=== PATIENT | female | born 1965 | race Caucasian/White ===

== ENCOUNTER 2017-04-01 19:53 | Emergency (ER) | payer OTHER, BC ==
--- NOTE | 2017-04-01 20:43 | ER Document Report ---
ED Neck/Back Problem - General Chief Complaint: Neck Pain < 24hrs old Stated Complaint: LEFT SIDE NECK PAIN Time Seen by Provider: 04/01/17 20:42 Mode of Arrival: Ambulatory Notes: 51 female with complaint of neck pain. Can feel her heartbeat up into the left side of her neck. Also having intermittent chest pain. Symptoms started a few hours ago. No significant shortness of breath. does have a history of hyperlipidemia. Family history of heart disease. Does not smoke. Not on any medications for blood pressure. TRAVEL OUTSIDE OF THE [place] IN LAST 30 DAYS: No - Related Data Allergies/Adverse Reactions: meperidine [From Demerol] Allergy (Verified 04/01/17 20:34) Past Medical History - Social History Smoking Status: Never Smoker Family History: Reviewed & Not Pertinent Patient has suicidal ideation: No Patient has homicidal ideation: No - Past Medical History Cardiac Medical History: Reports: Hx Hypercholesterolemia Renal/ Medical History: Denies: Hx Peritoneal Dialysis GI Medical History: Reports: Hx Gastroesophageal Reflux Disease Past Surgical History: Reports: Hx Hysterectomy - Immunizations Hx Diphtheria, Pertussis, Tetanus Vaccination: Yes Review of Systems - Review of Systems Constitutional: No symptoms reported EENT: No symptoms reported, Other - Throbbing feeling in her neck Cardiovascular: No symptoms reported, Chest pain Respiratory: No symptoms reported Gastrointestinal: No symptoms reported Genitourinary: No symptoms reported Female Genitourinary: No symptoms reported Musculoskeletal: No symptoms reported Skin: No symptoms reported Hematologic/Lymphatic: No symptoms reported Neurological/Psychological: No symptoms reported Physical Exam - Vital signs Vitals: Temp Pulse Resp BP Pulse Ox 98.0 F 67 16 124/87 H 98 04/01/17 20:18 04/01/17 20:18 04/01/17 20:18 04/01/17 20:18 04/01/17 20:18 Interpretation: Normal - General General appearance: Appears well, Alert - HEENT Head: Normocephalic, Atraumatic Eyes: Normal Pupils: PERRL - Respiratory Respiratory status: No respiratory distress Chest status: Nontender Breath sounds: Normal Chest palpation: Normal - Cardiovascular Rhythm: Regular, Irregularly irregular, Other - Frequent PVCs Heart sounds: Normal auscultation Murmur: No Gallop: No: S3 gallop, S4 gallop Notes: Intermittent left-sided carotid bruit which is very faint - Abdominal Inspection: Normal Distension: No distension Bowel sounds: Normal Tenderness: Nontender Organomegaly: No organomegaly - Back Back: Normal, Nontender - Extremities General upper extremity: Normal inspection, Nontender, Normal color, Normal ROM , Normal temperature General lower extremity: Normal inspection, Nontender, Normal color, Normal ROM , Normal temperature, Normal weight bearing. No: Byron's sign - Neurological Neuro grossly intact: Yes Cognition: Normal Orientation: AAOx4 [place] Coma Scale Eye Opening: Spontaneous [place] Coma Scale Verbal: Oriented [place] Coma Scale Motor: Obeys Commands [place] Coma Scale Total: 15 Speech: Normal Motor strength normal: LUE, RUE, LLE, RLE Sensory: Normal - Psychological Associated symptoms: Normal affect, Normal mood - Skin Skin Temperature: Warm Skin Moisture: Dry Skin Color: Normal Course - Re-evaluation Re-evalutation: 04/01/17 21:06 I believe at this time patient has concern for possible anginal equivalent. Will order the standard protocol for cardiac workup. Patient was advised that she needs to be moved over to a higher acuity level than the fast track area at this time. Patient is comfortable with this plan. Will start on aspirin and order basic labs. Charge nurse notified. We will continue to monitor until patient is transition to different higher acuity level area of the emergency department - Vital Signs Vital signs: Temp Pulse Resp BP Pulse Ox 98.0 F 67 16 124/87 H 98 04/01/17 20:18 04/01/17 20:18 04/01/17 20:18 04/01/17 20:18 04/01/17 20:18 Discharge - Discharge Referrals: YANCY HAWKINS JR, MD [Primary Care Provider] - Follow up as needed
[2017-04-01] MEDS ORDERED: ASPIRIN 325 MG TABLET PO ONE (21:03)
--- NOTE | 2017-04-01 21:21 | ER Document Report ---
ED General - General Chief Complaint: Neck Pain < 24hrs old Stated Complaint: LEFT SIDE NECK PAIN Time Seen by Provider: 04/01/17 20:42 Mode of Arrival: Ambulatory Information source: Patient Notes: 51-year-old female presents with complaints of neck spasm. Patient notes that symptoms worsened with movement of her neck and there is a specific position where she feels the spasm worsening. Patient also notes that 3 days ago she had pain down her left arm. Patient denies any chest pain she denies any shortness of breath. Patient does admit that she had a superficial thrombus in her right hand but did not require any intervention TRAVEL OUTSIDE OF THE [place] IN LAST 30 DAYS: No - HPI Onset: This morning Onset/Duration: Sudden Quality of pain: Cramping, Sharp Severity: Mild Pain Level: 1 Associated symptoms: None Exacerbated by: Movement Relieved by: Denies Similar symptoms previously: No Recently seen / treated by doctor: No - Related Data Allergies/Adverse Reactions: meperidine [From Demerol] Allergy (Verified 04/01/17 20:34) Past Medical History - Social History Smoking Status: Never Smoker Cigarette use (# per day): No Chew tobacco use (# tins/day): No Smoking Education Provided: No Family History: Reviewed & Not Pertinent Patient has suicidal ideation: No Patient has homicidal ideation: No - Past Medical History Cardiac Medical History: Reports: Hx Hypercholesterolemia Renal/ Medical History: Denies: Hx Peritoneal Dialysis GI Medical History: Reports: Hx Gastroesophageal Reflux Disease Past Surgical History: Reports: Hx Hysterectomy - Immunizations Hx Diphtheria, Pertussis, Tetanus Vaccination: Yes Review of Systems - Review of Systems Notes: REVIEW OF SYSTEMS: CONSTITUTIONAL : Denies fever, chills, or sweats. Denies recent illness. EENT: Admits neck pain CARDIOVASCULAR: Denies chest pain. Denies palpitations or racing or irregular heart beat. Denies ankle edema. RESPIRATORY: Denies cough, cold, or chest congestion. Denies shortness of breath, difficulty breathing, or wheezing. GASTROINTESTINAL: Denies abdominal pain or distention. Denies nausea, vomiting , or diarrhea. Denies blood in vomitus, stools, or per rectum. Denies black, tarry stools. Denies constipation. GENITOURINARY: Denies difficulty urinating, painful urination, burning, frequency, blood in urine, or discharge. FEMALE GENITOURINARY: Denies vaginal bleeding, heavy or abnormal periods, irregular periods. Denies vaginal discharge or odor. MUSCULOSKELETAL: Denies back or neck pain or stiffness. Denies joint pain or swelling. SKIN: Denies rash, lesions or sores. HEMATOLOGIC : Denies easy bruising or bleeding. LYMPHATIC: Denies swollen, enlarged glands. NEUROLOGICAL: Denies confusion or altered mental status. Denies passing out or loss of consciousness. Denies dizziness or lightheadedness. Denies headache. Denies weakness or paralysis or loss of use of either side. Denies problems with gait or speech. Denies sensory loss, numbness, or tingling. Denies seizures. PSYCHIATRIC: Denies anxiety or stress. Denies depression, suicidal ideation, or homicidal ideation. ALL OTHER SYSTEMS REVIEWED AND NEGATIVE. PHYSICAL EXAMINATION: GENERAL: Well-appearing, well-nourished and in no acute distress. HEAD: Atraumatic, normocephalic. EYES: Pupils equal round and reactive to light, extraocular movements intact, conjunctiva are normal. ENT: Nares patent, oropharynx clear without exudates. Moist mucous membranes. NECK: Normal range of motion, supple without lymphadenopathy tenderness with range of motion of the neck on the left lateral aspect LUNGS: Breath sounds clear to auscultation bilaterally and equal. No wheezes rales or rhonchi. HEART: Regular rate and rhythm without murmurs ABDOMEN: Soft, nontender, nondistended abdomen. No guarding, no rebound. No masses appreciated. Female : deferred Musculoskeletal: Normal range of motion, no pitting or edema. No cyanosis. NEUROLOGICAL: Cranial nerves grossly intact. Normal speech, normal gait. Normal sensory, motor exams PSYCH: Normal mood, normal affect. SKIN: Warm, Dry, normal turgor, no rashes or lesions noted. Dictation was performed using [employer] voice recognition software Physical Exam - Vital signs Vitals: Temp Pulse Resp BP Pulse Ox 98.0 F 67 16 124/87 H 98 04/01/17 20:18 04/01/17 20:18 04/01/17 20:18 04/01/17 20:18 04/01/17 20:18 Course - Re-evaluation Re-evalutation: 04/02/17 00:14 Patient was passed off to me by fast track physician with concerns for ruling out an ACS. Cardiac enzyme was performed no abnormalities noted. Patient's presentation is more musculoskeletal in nature as it hurts with movement. I did perform a bedside ultrasound and noted no blood clot in the IVC and had full compression all throughout. The carotid itself was evaluated and no stenosis was noted. Patient was made aware these are not official studies and that she must follow-up with a rodeo performer nonetheless. Patient states she will do so and is at this time wishing to be discharged home After performing a Medical Screening Examination, I estimate there is LOW risk for RUPTURED ESOPHAGUS, PNEUMOTHORAX, PULMONARY EMBOLISM, ACUTE CORONARY SYNDROME, OR THORACIC AORTIC DISSECTION, thus I consider the discharge disposition reasonable. I have reevaluated this patient multiple times and no significant life threatening changes are noted. The patient and I have discussed the diagnosis and risks, and we agree with discharging home with close follow-up. We also discussed returning to the Emergency Department immediately if new or worsening symptoms occur. We have discussed the symptoms which are most concerning (e.g., bloody sputum, worsening pain or shortness of breath) that necessitate immediate return. - Vital Signs Vital signs: Temp Pulse Resp BP Pulse Ox 98.0 F 67 16 106/64 100 04/01/17 20:18 04/01/17 20:18 04/01/17 23:19 04/01/17 23:19 04/01/17 23:19 - Laboratory Result Diagrams: 04/01/17 21:15 04/01/17 21:15 - Diagnostic Test Radiology reviewed: Image reviewed, Reports reviewed - EKG Interpretation by Me EKG shows normal: Sinus rhythm, [place], Intervals, QRS Complexes Discharge - Discharge Clinical Impression: Neck pain Condition: Stable Disposition: HOME, SELF-CARE Instructions: Neck Injury (Cervical Strain) ([facility]) Prescriptions: Cyclobenzaprine HCl [Flexeril 10 mg Tablet] 10 mg PO TIDP PRN #14 tablet PRN Reason: Referrals: YANCY HAWKINS JR, MD [Primary Care Provider] - Follow up tomorrow CARISA FITZGERALD MD [ACTIVE STAFF] - Follow up tomorrow
[2017-04-01 21:25] LABS: ABSOLUTE BASOPHILS # (AUTO) 0.1 10^3/uL (0.0-0.2); ABSOLUTE EOSINOPHILS # (AUTO) 0.3 10^3/uL (0.0-0.6); ABSOLUTE LYMPHOCYTES (AUTO) 3.1 10^3/uL (0.5-4.7); ABSOLUTE MONOCYTES (AUTO) 0.6 10^3/uL (0.1-1.4); ABSOLUTE NEUT (AUTO) 3.7 10^3/uL (1.7-8.2); BASOPHILS % (AUTO) 1.2 % (0-2); EOSINOPHILS % (AUTO) 3.9 % (0-6); HEMATOCRIT 38.3 % (36.0-47.0); HGB HCT DIFFERENCE 0.7; LYMPHOCYTES % (AUTO) 39.9 % (13-45); MEAN CORPUSCULAR HEMOGLOBIN 29.3 pg (27.0-33.4); MEAN CORPUSCULAR VOLUME 86 fl (80-97); MONOCYTES % (AUTO) 8.2 % (3-13); RED BLOOD COUNT 4.45 10^6/uL (3.72-5.28); RED CELL DISTRIBUTION WIDTH 13.3 % (11.5-14.0); SEGMENTED NEUTROPHILS % (AUTO) 46.8 % (42-78); WHITE BLOOD COUNT 7.8 10^3/uL (4.0-10.5)
[2017-04-01 21:44] LABS: ALANINE AMINOTRANSFERASE 31 U/L (9-52); ALBUMIN 4.4 g/dL (3.5-5.0); ALKALINE PHOSPHATASE 83 U/L (38-126); ANION GAP 13 (5-19); ASPARTATE AMINO TRANSFERASE 26 U/L (14-36); BILIRUBIN,DIRECT 0.4 mg/dL (0.0-0.4); BILIRUBIN,TOTAL 0.5 mg/dL (0.2-1.3); BLOOD UREA NITROGEN 19 mg/dL (7-20); CALCIUM 9.9 mg/dL (8.4-10.2); CARBON DIOXIDE 27 mmol/L (22-30); CHLORIDE 103 mmol/L (98-107); CREATINE KINASE 84 U/L (30-135); CREATININE RESULT 0.92 mg/dL (0.52-1.25); GLUCOSE 93 mg/dL (75-110); SODIUM 142.8 mmol/L (137-145); TOTAL PROTEIN 7.4 g/dL (6.3-8.2)
[2017-04-01 21:55] LABS: CREATINE KINASE MB 0.37 ng/mL (<4.55)
[2017-04-01 21:56] LABS: TROPONIN I < 0.012 ng/mL
[2017-04-01 22:07] LABS: PROTHROMBIN TIME 12.5 SEC (11.4-15.4)
--- NOTE | 2017-04-01 22:31 | RADIOLOGY REPORT (SQ) ---
EXAM DESCRIPTION: CHEST SINGLE VIEW COMPLETED DATE/TIME: 04/01/2017 9:25 pm REASON FOR STUDY: chest pain COMPARISON: None. EXAM PARAMETERS: NUMBER OF VIEWS: One view. TECHNIQUE: Single frontal radiographic view of the chest acquired. RADIATION DOSE: NA LIMITATIONS: None. FINDINGS: LUNGS AND PLEURA: No opacities, masses or pneumothorax. No pleural effusion. MEDIASTINUM AND HILAR STRUCTURES: No masses. Contour normal. HEART AND VASCULAR STRUCTURES: Heart normal in size. Normal vasculature. BONES: No acute findings. HARDWARE: None in the chest. OTHER: No other significant finding. IMPRESSION: NO ACUTE RADIOGRAPHIC FINDING IN THE CHEST. TECHNICAL DOCUMENTATION: JOB ID: [id number]
[2017-04-01 23:22] VITALS: BP 106/64
--- NOTE | 2017-04-02 08:10 | EKG REPORT ---
SEVERITY:- NORMAL ECG - SINUS RHYTHM : Confirmed by: Angel Franks MD 02-Apr-2017 08:09:43
== END 2017-04-01 23:22 | disposition home or self-care (01) ==
LOC: ER 19:53
DX: M54.2 Cervicalgia (principal); R25.2 Cramp and spasm; M79.602 Pain in left arm
CPT/HCPCS: 36415; 71010; 80053; 82550; 82553; 84484; 85025; 85610; 93005; 93010; 99283

== ENCOUNTER → 2017-11-09 | Outpatient (CLI) | payer OTHER, BC ==
--- NOTE | 2017-11-09 12:39 | WOMENS IMAGING REPORT ---
EXAM DESCRIPTION: BILAT SCREENING MAMMO W/CAD COMPLETED DATE/TIME: 11/09/2017 10:26 am REASON FOR STUDY: SCREENING MAMMO Z12.31 ENCNTR SCREEN MAMMOGRAM FOR MALIGNANT NEOPLASM OF FRANCIS COMPARISON: Multiple since 2009 TECHNIQUE: Standard craniocaudal and mediolateral oblique views of each breast recorded using digita l acquisition. LIMITATIONS: None. FINDINGS: No masses, calcifications or architectural distortion. No areas of suspicion. Read with the assistance of CAD. .[facility] - R2 Cenova Version 1.3 .[facility] - R2 Cenova Version 1.3 .[facility] - R2 Cenova Version 2.4 .[facility] - R2 Cenova Version 2.4 .[facility] - R2 Universal Grinder Tool Version 9.2 IMPRESSION: NORMAL MAMMOGRAM. BIRADS 1. BREAST DENSITY: c. The breasts are heterogeneously dense, which may obscure small masses. BIRAD: 1 NEGATIVE RECOMMENDATION: ROUTINE SCREENING Please continue yearly bilateral screening mammography/tomosynthesis October 2018. Please consider bilat eral screening tomosynthesis given heterogeneously dense tissue. COMMENT: The patient has been notified of the results by letter per SA requirements. Additional no tification policies are in place for contacting patient with suspicious or incomplete findings. Quality ID #[id number]: The [employer] recommends an annual screening mammogram for women aged 40 years or over. This facility utilizes a reminder system to ensure that all patients receive reminder letters, and/or direct phone calls for appointments. This includes reminders for routine scr eening mammograms, diagnostic mammograms, or other Breast Imaging Interventions when appropriate. Th is patient will be placed in the appropriate reminder system. The [employer] (ACR) has developed recommendations for screening MRI of the breast s in certain patient populations, to be used in conjunction with mammography. Breast MRI surveillanc e may be appropriate for women with more than 20% lifetime risk of developing breast cancer as deter mined by genetic testing, significant family history of the disease, or history of mantle radiation f or Hodgkins Disease. ACR Practice Guidelines 2008. TECHNICAL DOCUMENTATION: FINDING NUMBER: (1) ASSESSMENT: (1) JOB ID: [id number] [employer]- All Rights Reserved Reading location - IP/workstation name: [email or web address] [id number]
== END ==
LOC: WI 10:00
PROVIDERS: ATTEND Nurse Practitioner Acute Care
DX: Z12.31 Encounter for screening mammogram for malignant neoplasm of breast (principal)
CPT/HCPCS: 77067

== ENCOUNTER → 2018-11-12 | Outpatient (CLI) | payer OTHER, BC ==
--- NOTE | 2018-11-12 10:32 | WOMENS IMAGING REPORT ---
EXAM DESCRIPTION: BILAT SCREENING MAMMO W/CAD COMPLETED DATE/TIME: 11/12/2018 9:23 am REASON FOR STUDY: ROUTINE BILATERAL SCREENING;Z12.31 Z12.31 ENCNTR SCREEN MAMMOGRAM FOR MALIGNANT N EOPLASM OF FRANCIS COMPARISON: Multiple since 2009 EXAM PARAMETERS: Standard craniocaudal and mediolateral oblique views of each breast recorded using digital acquisition. Read with the assistance of CAD. .[facility] - Fusion Dynamic Final Tester Version 9.2 LIMITATIONS: None. FINDINGS: No suspicious masses, suspicious calcifications or architectural distortion. No areas of s uspicion. IMPRESSION: ASSESSMENT: Negative MAMMOGRAM. BIRADS 1 BREAST DENSITY: c. The breasts are heterogeneously dense, which may obscure small masses. BIRAD: 1 NEGATIVE RECOMMENDATION: ROUTINE SCREENING Please continue yearly bilateral screening mammography. Consider bilateral screening tomosynthesis i n October 2019 given heterogeneously dense fibroglandular tissue bilaterally COMMENT: The patient has been notified of the results by letter per MQSA requirements. Additional no tification policies are in place for contacting patient with suspicious or incomplete findings. Quality ID #[id number]: The [employer] recommends an annual screening mammogram for women aged 40 years or over. This facility utilizes a reminder system to ensure that all patients receive reminder letters, and/or direct phone calls for appointments. This includes reminders for routine scr eening mammograms, diagnostic mammograms, or other Breast Imaging Interventions when appropriate. Th is patient will be placed in the appropriate reminder system. TECHNICAL DOCUMENTATION: FINDING NUMBER: (1) ASSESSMENT: (1) JOB ID: [id number] [employer]- All Rights Reserved Reading location - IP/workstation name: [email or web address]
== END ==
LOC: WI 09:09
PROVIDERS: ATTEND Nurse Practitioner Acute Care
DX: Z12.31 Encounter for screening mammogram for malignant neoplasm of breast (principal)
CPT/HCPCS: 77067

== ENCOUNTER → 2020-07-12 | Outpatient (CLI) | payer OTHER, BC ==
--- OUTSIDE RECORDS SUMMARY | 2020-07-12 08:34 | XMS REPORT ---
:1965 [facility] [address] [place] [address] Care Team Providers Name Role Phone EDILMA HAWKINS Primary Care Physician Unavailable JOSE MIGUEL GUTIÉRREZ Attending Clinician Unavailable BRIDGER CURTIS Attending Clinician Unavailable ANDREWS WHEELER Attending Clinician Unavailable ISRAEL WILSON Attending Clinician Unavailable Antonia Attending Clinician Unavailable JOSE MIGUEL GUTIÉRREZ Admitting Clinician Unavailable ANDREWS WHEELER Admitting Clinician Unavailable ISRAEL WILSON Admitting Clinician Unavailable Liam ANDRES Unavailable Marco Unavailable Unavailable Allergies, Adverse Reactions, Alerts Allergy Allergy Status Severity Reaction(s) Onset Inactive Treating C omments Name Type Date Date Clinician Demerol Drug Active Itching 2016-02 allergy -12 00:00:0 0 Medications Ordered Filled Start Stop Current Ordering Indication Dosage Frequency Signature Comments Components Medication Medication Date Date Medication? Clinician (SIG) Name Name acetaminoph 2019-0 Yes 650mg Take 2 Take 2 en 11-17 tablets tablets (TYLENOL) 00:00: (650 mg (650 mg 325 MG 00 total) by total) by tablet mouth mouth every four every (4) hours four (4) as needed. hours as needed. docusate 2020-0 2020- No 100mg Take 1 Take 1 sodium 11-17 capsule capsule (COLACE) 00:00: 23:59 (100 mg (100 mg 100 MG 00 :00 total) by total) by capsule mouth Two mouth Tw o (2) times (2) times a day. a day. senna 2020-0 2020- No 2{tbl} Take 2 Take 2 (SENOKOT) 11-17 tablets by table ts 8.6 mg 00:00: 23:59 mouth by mouth tablet 00 :00 nightly. nightly. oxyCODONE 2019-2019- No 5mg Take 1 Take 1 (ROXICODONE 11-1705 tablet (5 tabl et (5 ) 5 MG 00:00: 00:00 mg total) mg total ) immediate 00 :00 by mouth by mout h release every four every tablet (4) hours four (4) as needed hours as for up to needed 5 days. for up to 5 days. senna 2019-0 No 2{tbl} 2 tablet, (SENOKOT) 11-16 Oral, tablet 2 21:00: Nightly, tablet 00 First dose on Tasha 11/17/19 at 2100, Post-op
Routine docusate 2019- No 100mg 100 mg, sodium 11-16 Oral, 2 (COLACE) 21:00: times a capsule 100 00 day mg (standard) , First dose on Tasha 11/17/19 at 2100, Post-op
Routine sodium 2019- No 75mL/h 75 mL/hr, chloride 11-16 Intravenou (NS) 0.9 % 15:00: s, infusion 00 Continuous , Starting Tasha 11/17/19 at 1500, Post-op
Routine ceFAZolin 2019- No surgical 2g 2 g, (ANCEF) 11-16 prophylaxis Intravenou IVPB 2 g in 15:00: 22:25 s, at 100 50 ml 00 :00 mL/hr, dextrose Every 8 (premix) hours scheduled, First dose on Tasha 11/17/19 at 1500, For 2 doses, Post-op
Routine, Indication s: surgical prophylaxi s MORPhine 2019-2019- No 2mg 2 mg, injection 2 11-16 Intravenou mg 14:40: 14:39 s, Every 4 43 :43 hours PRN, pain,sever e (7-10), Starting Tasha 11/17/19 at 1440, For 14 days, Post-op
If unable to take oral medication s.
Rout ine oxyCODONE 2019-2019- No 5mg 5 mg, (ROXICODONE 11-16 Oral, ) immediate 14:40: 14:39 Every 4 release 43 :43 hours PRN, tablet 5 mg pain,moder ate (4-6), Starting Tasha 11/17/19 at 1440, For 14 days, Post-op
Routine ondansetron No 4mg 4 mg, (ZOFRAN) 11-16 Intravenou injection 4 14:40: 14:39 s, Every 6 mg 43 :43 hours PRN, nausea, vomiting, Starting Tasha 11/17/19 at 1440, For 24 hours, Post-op
Routine acetaminoph No 650mg 650 mg, en 11-16 Oral, (TYLENOL) 14:40: Every 4 tablet 650 42 hours PRN, mg pain,mild (1-3), Starting Tasha 11/17/19 at 1440, Post-op
ADULT MAX: NOT TO EXCEED 4GM ACETAMINOP HEN IN 24HRS
R outine oxyCODONE No 5mg 5 mg, (ROXICODONE 11-16 Oral, Once ) immediate 12:58: 14:32 as needed, release 01 :57 pain,moder tablet 5 mg ate (4-6), pain,sever e (7-10), Starting Tasha 11/17/19 at 1258, For 6 hours, PACU (only)
Administer >/= 30 minutes prior to discharge if pain >/=4.
R outine fentaNYL No 25ug 25 mcg, (PF) 11-16 Intravenou (SUBLIMAZE) 12:57: 14:00 s, Every 5 injection 52 :00 min PRN, 25 mcg other, pain, moderate (4-6); pain, severe (7-10), Starting Tasha 11/17/19 at 1257, For 4 doses, PACU (only)
Maximum dose 100 mcg.
Ro utine lactated No 10mL/h 10 mL/hr, Ringers 11-16 Intravenou infusion 09:00: 14:40 s, 00 :47 Continuous , Starting Tasha 11/17/19 at 0900, Pre-op (day of surgery)<b r>KVO
R outine zolpidem 2019-0 Yes 5mg Take 5 mg Take 5 mg (AMBIEN) 5 8-22 by mouth by yajaira th MG tablet 00:00: nightly as nigh tly 00 needed. as needed. zolpidem 2019-0 Yes 5mg Q1D Take 1 Tab (AMBIEN) 5 8-22 by mouth mg Oral 00:00: at bedtime Tablet 00 as needed for Sleep. zolpidem 2018-0 No 5mg Q1D Take 1 Tab (AMBIEN) 5 2-13 by mouth mg Oral 00:00: at bedtime Tablet 00 as needed for Sleep. levETIRAcet 0 Yes 500mg Q.5D Take 0.5 am (KEPPRA) 2-05 Tabs by 1,000 mg 00:00: mouth Oral Tablet 00 twice a day. dexamethaso 2018-0 No 4mg Take 1 Tab ne 2-05 by mouth (DECADRON) 00:00: as 4 mg Oral 00 directed. Tablet Take 4mg QID x 4 days, then TID x 4 days, then BID x 4 days, then QD x 4 days, then discontinu e. famotidine 0 Yes 20mg Q.5D Take 1 Tab (PEPCID) 20 2-05 by mouth mg Oral 00:00: twice a Tablet 00 day. Take while on steroid therapy. HYDROcodone 2018-0 No 1{tbl} Q6H Take 1 Tab -acetaminop 2-05 by mouth hen (NORCO, 00:00: every 6 LORCET) 00 hours as 5-325 mg needed for Oral Tablet Pain. dexamethaso 2019-0 Yes 4mg Take 1 Tab ne 2-05 by mouth (DECADRON) 00:00: as 4 mg Oral 00 directed. Tablet Take 4mg QID x 4 days, then TID x 4 days, then BID x 4 days, then QD x 4 days, then discontinu e. levETIRAcet 2020- No 500mg Take 500 Take 500 am (KEPPRA) 2-05 06-05 mg by mg by 1000 MG 00:00: 00:00 mouth two mouth t wo tablet 00 :00 (2) times (2) times a day. a day. dexamethaso 2018-0 2019- No 4mg Q.25D 4 mg, ne 2-04 03-03 Oral, (DECADRON) 12:00: 11:59 EVERY 6 tablet 4 mg 00 :00 HOURS, First dose on 07/26/18 at 1200, For 108 doses
G ke with food and a full glass of water to reduce GI upset.&nbs p;
enoxaparin 2018- No 40mg QD 40 mg, (LOVENOX) 07-25 Subcutaneo 40 mg/0.4 16:00: 15:59 us, DAILY mL 00 :00 AT 1600, injection First dose 40 mg on 07/25/18 at 1600, For 30 days
In ject at a 90 degree angle.&nbs p; Do NOT expel air bubble at tip of syringe.&n bsp; Do NOT massage injection site.&nbsp ; Alt ernate between the left and right anterolate ral and left and right posterolat eral abdominal wall.&nbsp ; Doc ument administra tion site.& nbsp;BLACK BOX WARNING: Epidural or spinal hematomas may occur in patients who are anticoagul ated with LMWHs or heparinoid s and are receiving neuraxial anesthesia or undergoing spinal puncture. These hematomas may result in long-term or permanent paralysis. Consider these risks when scheduling patients for spinal procedures .
dexamethaso 2018- No 6mg Q.25D 6 mg, ne 07-25 Oral, (DECADRON) 06:00: 10:44 EVERY 6 tablet 6 mg 00 :59 HOURS, First dose on Thu07/25/18 at 0600, For 113 doses
G ke with food and a full glass of water to reduce GI upset.&nbs p;
hydrALAZINE 2018- No 10mg Q4H 10 mg, (APRESOLINE 07-25 Intravenou ) injection 03:14: 03:13 s, EVERY 4 10 mg 53 :53 HOURS NEEDED, Elevated BP, Starting 07/25/18 at 0314, For 30 days
For PRN use: maintain SBP less than 140 mmHg
ceFAZolin 2018- No 3055 1g Q8H 1 g, in dextrose 07-24 Intravenou (iso-os) 07:20: 10:00 s, at 100 (ANCEF) 1 00 :31 mL/hr, gram/50 mL Administer IVPB over 30 (premix) 1 Minutes, g EVERY 8 HOURS FREE TIMES, First dose on Thu07/24/18 at 0725, For 3 days
UN TIL HEMOVAC REMOVED
Indicatio ns: Perioperat ke Prophylaxi s dexamethaso 2018- No 8mg Q.25D 8 mg, ne 07-23 Oral, (DECADRON) 12:00: 03:12 EVERY 6 tablet 8 mg 00 :44 HOURS, First dose on Thu07/23/18 at 1200, For 30 days
Gi ve with food and a full glass of water to reduce GI upset.&nbs p;
sodium 2018- No 2g 2 g, Oral, chloride 07-23 TWICE A tablet 2 g 11:00: 07:59 DAY WITH 00 :00 MEALS, First dose on Thu07/23/18 at 1100, For 30 days white 2019- No .25[in_ Q4H 0.25 Inch, petrolatum- 07-23 us] Right Eye, mineral oil 09:36: 09:35 EVERY 4 ophthalmic 23 :23 HOURS ointment NEEDED, 0.25 Inch Dryness, Starting Thu07/23/18 at 0936, For 30 days
Us e for artificial tear ointment.< br> polyvinyl 2019- No 1[drp] Q4H 1 Drop, alcohol-pov 07-23 Right Eye, idone 09:36: 09:35 EVERY 4 (CLEAR 13 :13 HOURS EYES) NEEDED, 0.5-0.6 % Dryness, ophthalmic Starting solution 1 Thu07/23/18 Drop at 0936, For 30 days<br&gt ;Same as Artificial Tears.
HYDROcodone 2019- No 1{tbl} Q4H 1 Tab, -acetaminop 07-23 Oral, hen (NORCO, 08:41: 08:40 EVERY 4 LORCET) 36 :36 HOURS 10-325 mg NEEDED, per tablet Severe 1 Tab Pain, Starting Thu07/23/18 at 0841, For 30 days
Fa ll Risk Medication . &nb sp;For pain.&nbsp ; Ped iatrics:&n bsp; Do not exceed 5 doses of acetaminop hen in 24 hours.
HYDROcodone 2018- No 1{tbl} Q4H 1 Tab, -acetaminop 07-23 Oral, hen (NORCO, 08:41: 08:40 EVERY 4 LORCET) 26 :26 HOURS 5-325 mg NEEDED, per tablet Moderate 1 Tab Pain, Starting Thu07/23/18 at 0841, For 30 days<br&gt ;Fall Risk Medication . &nb sp;For pain.&nbsp ; Ped iatrics:&n bsp; Do not exceed 5 doses of acetaminop hen in 24 hours.
morphine 2018- No 2mg Q4H 2 mg (PF) in 0.9 07-23 (0.0317 % NaCl 2 08:41: 14:39 mg/kg), mg/2 mL (1 13 :16 Intravenou mg/mL) s, EVERY 4 injection 2 HOURS mg NEEDED, Unrelieved Pain, analgesia, Starting Thu07/23/18 at 0841, For 24 hours
F all Risk Medication
levETIRAcet 2018- No 1000mg Q.5D 1,000 mg, am (KEPPRA) 07-22 Oral, tablet 22:00: 21:59 TWICE A 1,000 mg 00 :00 DAY, First dose on Thu07/22/18 at 2200, For 30 days
Fa ll Risk Medication
famotidine 2018- No 20mg Q.5D 20 mg, (PEPCID) 07-22 Oral, tablet 20 22:00: 21:59 TWICE A mg 00 :00 DAY, First dose on Thu07/22/18 at 2200, For 30 days sodium 2018- No 3mL Q.[id number] 3 mL, chloride 07-22 [id number] Intravenou 0.9 % flush 22:00: 21:59 3D s, EVERY 8 3 mL 00 :00 HOURS, First dose on Thu07/22/18 at 2200, For 30 days
As pirate lock to ensure patency; flush with 3 ml of NaCl.&nbsp ; If a medication is administer ed, flush before and after administra tion.
senna 2018- No 2{tbl} QD 2 Tab, (SENOKOT) 07-22 Oral, tablet 2 22:00: 21:59 EVERY Tab 00 :00 EVENING, First dose on Thu07/22/18 at 2200, For 30 days
1 tablet = 8.6 mg Sennosides is equivalent to 187 mg of Senokot.<b r> docusate 2018- No 100mg Q.5D 100 mg, sodium 07-22 Oral, (COLACE) 22:00: 21:59 TWICE A capsule 100 00 :00 DAY, First mg dose on Thu07/22/18 at 2200, For 30 days
HO LD IF > 1 BM DAILY
mannitol 20 2018- No 12.5g Q.25D 12.6 g % 12.6 g in 07-22 (0.2 g/kg, empty 20:45: 19:42 rounded container 00 :42 from 12.5 (BOTTLE) g), IVPB Intravenou s, at 252 mL/hr, Administer over 15 Minutes, EVERY 6 HOURS, First dose on Thu07/22/18 at 2044, For 30 days
Fa ll Risk Medication . Infuse through 1.2 micron in-line filter.
ceFAZolin 2018- No 3055 2g Q8H 2 g, in dextrose 07-22 Intravenou (iso-os) 20:00: 12:24 s, at 100 (ANCEF) 2 00 :00 mL/hr, gram/50 mL Administer IVPB over 30 (premix) 2 Minutes, g EVERY 8 HOURS FREE TIMES, First dose on Thu07/22/18 at 2000, For 3 doses
I ndications : Perioperat ke Prophylaxi s electrolyte 2019- No 75mL/h 75 mL/hr, -R (pH 7.4) 07-22 Intravenou (NORMOSOL-R 19:40: 07:56 s, at 75 PH 7.4) 00 :23 mL/hr, solution CONTINUOUS , Starting Thu07/22/18 at 1940, For 24 hours insulin 2018- No Subcutaneo lispro 07-22 us, FOUR sensitivity 18:20: 17:59 TIMES A factor 00 :00 DAY WITH (humaLOG) MEALS & 100 BEDTIME, units/mL First dose injection on Thu07/22/18 at 1820, For 30 days
Do cument administra tion site.
T arget Glucose Value (mg/dL): 120
Ins ulin Sensitivit y Factor: 30 dextrose 50 2019- No 50mL Q1D 25 g (50 % in water 07-22 mL), (D50W) 18:17: 18:16 Intravenou injection 42 :42 s, 25 g NEEDED, Hypoglycem ia, Blood glucose 54 mg/dL or less--for unresponsi ve, altered mental status, seizures, or NPO status, Starting Thu07/22/18 at 1817, For 30 days dextrose 50 2018- No 25mL Q1D 12.5 g (25 % in water 07-22 mL), (D50W) 18:17: 18:16 Intravenou injection 42 :42 s, 12.5 g NEEDED, Hypoglycem ia, Blood glucose 55-69 mg/dL--for unresponsi ve, altered mental status, seizures, or NPO status, Starting Thu07/22/18 at 1817, For 30 days dexamethaso 2018- No 8mg Q.25D 8 mg ne 07-22 (0.127 (DECADRON) 18:00: 07:56 mg/kg), 4 mg/mL 00 :23 Intravenou injection 8 s, EVERY 6 mg HOURS, First dose on Thu07/22/18 at 1800, For 30 days<br&gt ;Use for Decadron. 5 mL Vials contain multiple doses.
levETIRAcet 2019- No 1000mg Q12H 1,000 mg, am in NaCl 07-22 Intravenou (KEPPRA) 14:50: 18:20 s, 1,000 00 :14 Administer mg/100 mL over 15 IVPB Minutes, (premix) EVERY 12 1,000 mg HOURS FREE TIMES, First dose on Tasha 07/22/18 at 1450, For 30 days
Fa ll Risk Medication
potassium 2019- No 100mL/h 100 mL/hr, chloride in 07-22 Intravenou 0.9%NaCl 20 14:50: 19:36 s, at 100 mEq/L 00 :49 mL/hr, infusion CONTINUOUS (premix) , Starting Tasha 07/22/18 at 1450, For 30 days
Do NOT exceed 20 mEq of potassium chloride per hour.
ondansetron 2018- No 4mg Q6H 4 mg (ZOFRAN) 07-22 (0.0634 injection 4 14:48: 14:47 mg/kg), mg 53 :53 Intravenou s, EVERY 6 HOURS NEEDED, Nausea/Vom iting, Starting Tasha 07/22/18 at 1448, For 30 days
Do ses 4 mg or less can be administer ed IV push over 3-5 minutes.&n bsp;&n bsp;Doses over 4 mg should be diluted and infused over 15 minutes.&n bsp; &nbs p;
acetaminoph 2018- No 650mg Q4H 650 mg, en 07-22 Oral, (TYLENOL) 14:48: 14:47 EVERY 4 tablet 650 52 :52 HOURS mg NEEDED, Fever, Mild Pain, Headache, Temperatur e greater than 38 C, Starting Tasha 07/22/18 at 1448, For 30 days
Pe diatrics:& nbsp;&nbsp ;Do not exceed 5 doses of acetaminop hen in 24 hours.
HYDROmorpho 2019- No .5mg 0.5 mg ne 07-22 (0.33965 (DILAUDID) 10:29: 14:35 mg/kg), 1 mg/mL 26 :12 Intravenou injection s, ANES 0.5 mg EVERY 5 MINUTES NEEDED, Moderate Pain, PostOp pain, if ordered oral meds are not tolerated, Starting Tasha 07/22/18 at 1029, For 12 hours, PACU
PA CU ONLY. Maximum cumulative dose 2 mg (Check all prior administra tions) Fall Risk Medication .
dexamethaso 2018- No 8mg 8 mg ne 07-22 (0.127 (DECADRON) 06:35: 07:13 mg/kg), 4 mg/mL 00 :00 Intravenou injection 8 s, ANES mg ONCE, Tasha 07/22/18 at 0635, For 1 dose, Pre-Op
Use for Decadron. 5 mL Vials contain multiple doses.
famotidine 2018- No 20mg 20 mg (PEPCID) 07-22 (0.317 injection 06:35: 07:16 mg/kg), 20 mg 00 :00 Intravenou s, Administer over 2 Minutes, ANES ONCE, Tasha 07/22/18 at 0635, For 1 dose, Pre-Op
Dilute in 5 mL of 0.9% sodium chloride and give over 2 minutes.<b r> midazolam 2018- No 2mg 2 mg (PF) 07-22 (0.0317 (VERSED) 06:35: 07:15 mg/kg), injection 2 00 :00 Intravenou mg s, ANES ONCE, Tasha 07/22/18 at 0635, For 1 dose, Pre-Op
Fall Risk Medication
dexamethaso 2018- No 4mg Take 1 Tab ne 07-1405 by mouth (DECADRON) 00:00: 00:00 four times 4 mg Oral 00 :00 a day with Tablet meals and bedtime. levETIRAcet 2018- No 500mg Q.5D Take 500 am (KEPPRA) 07-03 02-05 mg by 500 mg Oral 00:00: 00:00 mouth Tablet 00 :00 twice a day. atorvastati Yes 1{tbl} Take 1 Take 1 n (LIPITOR) tablet by tabl et by 40 MG mouth mouth tablet daily. daily. diclofenac Yes 2g Apply 2 g Apply 2 g sodium topically topically (VOLTAREN) 4 (four) 4 (fou r) 1 % gel times a times a day as day as needed. needed. esomeprazol Yes 1{capsu Take 1 Take 1 e (NEXIUM) le} capsule by caps ule 40 MG mouth by mouth capsule daily. daily. 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 Over view: mass mass 4 14:05:36 Added 00:00: automati c 00 ally fro m request for surgery [id number] Cerebral Cerebral [id number] Active convexity convexity 1-11 meningioma meningioma 00:00: 00 Not on file Not on file [id number] Arthritis Arthritis Problem Active Benign Benign Problem Active Liam, 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 Encounter Encounter Problem Active tra Lara for Antonia education education Thyroid Thyroid Problem Active Liam, nodule nodule Akil Procedures Procedure Date / Time Performed Performing Clinician Rodolfo lauren MRI BRAIN W & WO CONTRAST XAF 2020-01-18 11:50:00 Kevin Wilson MRI NEURO INTERPRETATION OF 2019-10-12 11:54:30 Sherry Gutiérrez OUTSIDE FILM ([facility]) EKG 12 LEAD 2019-08-15 15:11:36 Akil Wheeler XRAY CHEST 2 VIEWS 2019-08-15 15:09:12 Akil Wheeler XRAY CHEST 2 VIEWS 2019-08-15 15:09:12 Akil Wheeler BASIC METABOLIC PANEL 2019-08-15 15:02:00 Akil Wheeler PT (PROTHROMBIN TIME) WITH INR 2019-08-15 15:02:00 Akil Wheeler PTT 2019-08-15 15:02:00 Akil Wheeler CBC WITH DIFFERENTIAL 2019-08-15 15:02:00 Akil Wheeler CBC WITH DIFFERENTIAL 2019-08-15 15:02:00 Liam Akil Davila EKGSCAN 2019-08-15 05:00:00 Unassigned, Doctor POC - HEMOGLOBIN W/ CPT 2019-08-15 00:00:00 Alisha Morales ([id number]) MRI BRAIN W & WO CONTRAST XAF 2019-07-13 18:03:00 Xander, Kevin S tuart MRI BRAIN W & WO CONTRAST XAF 2019-01-05 19:07:00 Xander, Kevin S tuart CT HEAD WO CONTRAST XAF 2018-10-13 15:09:00 Xander, Kevin Israel GLUCOSE, POC (GLUCOMETER) 2018-07-27 12:47:00 Xander, Kevin Stuar t GLUCOSE, POC (GLUCOMETER) 2018-07-27 02:38:00 Xander, Kevin Stuar t GLUCOSE, POC (GLUCOMETER) 2018-07-26 21:24:00 Xander, Kevin Stuar t GLUCOSE, POC (GLUCOMETER) 2018-07-26 16:52:00 Xander, Kevin Stuar t GLUCOSE, POC (GLUCOMETER) 2018-07-26 12:41:00 Xander, Kevin Stuar t GLUCOSE, POC (GLUCOMETER) 2018-07-26 02:24:00 Xander, Kevin Stuar t GLUCOSE, POC (GLUCOMETER) 2018-07-25 22:41:00 Xander, Kevin Stuar t GLUCOSE, POC (GLUCOMETER) 2018-07-25 17:18:00 Xander, Kevin Stuar t GLUCOSE, POC (GLUCOMETER) 2018-07-25 13:22:00 Xander, Kevin Stuar t BASIC METABOLIC PANEL 2018-07-25 08:44:00 Minal Sarmiento GLUCOSE, POC (GLUCOMETER) 2018-07-25 02:18:00 Xander, Kevin Stuar t GLUCOSE, POC (GLUCOMETER) 2018-07-24 23:14:00 Xander, Kevin Stuar t GLUCOSE, POC (GLUCOMETER) 2018-07-24 17:04:00 Xander, Kevin Stuar t GLUCOSE, POC (GLUCOMETER) 2018-07-24 13:04:00 Xander, Kevin Stuar t PHOSPHORUS 2018-07-24 09:11:00 Bridger Smith CALCIUM, IONIZED, WHOLE BLOOD 2018-07-24 09:11:00 Rolan Smith MAGNESIUM 2018-07-24 09:11:00 Bridger Smith CBC WITH DIFF 2018-07-24 09:11:00 Bridger Smith BASIC METABOLIC PANEL 2018-07-24 09:11:00 Bridger Smith sa EKGSCAN 2018-07-24 05:00:00 Unassign, Doctor GLUCOSE, POC (GLUCOMETER) 2018-07-24 03:39:00 Kevin Wilson Stuar t GLUCOSE, POC (GLUCOMETER) 2018-07-23 22:48:00 Kevin Wilson Stuar t GLUCOSE, POC (GLUCOMETER) 2018-07-23 16:28:00 Kevin Wilson Stuar t GLUCOSE, POC (GLUCOMETER) 2018-07-23 14:38:[address] HEAD W/O IV CONTRAST 2018-07-23 13:32:34 Joy Connorseth PHOSPHORUS 2018-07-23 08:33:00 Minal Sarmiento CALCIUM, IONIZED, WHOLE BLOOD 2018-07-23 08:33:00 Desmond Sarmiento MAGNESIUM 2018-07-23 08:33:00 Minal Sarmiento CBC WITH DIFF 2018-07-23 08:33:00 Joy Connors BASIC METABOLIC PANEL 2018-07-23 08:33:00 Joy Connors [facility] EKGSCAN 2018-07-23 05:00:00 Unassign, Doctor GLUCOSE, POC (GLUCOMETER) 2018-07-23 02:43:00 Kevin Wilson Stuar t GLUCOSE, POC (GLUCOMETER) 2018-07-22 23:45:00 Kevin Wilson Stuar t COMPREHENSIVE METABOLIC PANEL 2018-07-22 20:39:00 Desmond Sarmiento PHOSPHORUS 2018-07-22 20:39:00 Minal Sarmiento CALCIUM, IONIZED, WHOLE BLOOD 2018-07-22 20:39:00 Desmond Sarmiento MAGNESIUM 2018-07-22 20:39:00 Minal Sarmiento CBC WITH DIFF 2018-07-22 20:39:00 Minal Sarmiento GLUCOSE, POC (GLUCOMETER) 2018-07-22 19:53:00 Kevin Wilsonr t CRANIOTOMY TUMOR NAVIGATION 2018-07-22 12:30:00 Kevin Wilsonu art EKGSCAN 2018-07-22 05:00:00 Unassign, Doctor EKG 12 LEAD 2018-07-14 19:00:00 Kevin Wilson Israel XRAY CHEST 2 VIEWS 2018-07-14 18:58:46 Kevin Wilson Israel XRAY CHEST 2 VIEWS 2018-07-14 18:58:46 Kevin Wilsonrt URINALYSIS, COMPLETE 2018-07-14 18:48:00 Kevin Wilson CBC WITH DIFF 2018-07-14 18:48:00 Kevin Wilson BASIC METABOLIC PANEL 2018-07-14 18:48:00 Kevin Wilson PT (PROTHROMBIN TIME) WITH INR 2018-07-14 18:48:00 Kevin Wilson Israel PTT 2018-07-14 18:48:00 Kevin Wilson Israel TYPE & SCREEN 2018-07-14 18:48:00 Kevin Wilson Israel EKGSCAN 2018-07-14 05:00:00 Unassign, Doctor OFFICE OUTPATIENT VISIT 10 2016-09-18 10:11:00 MINUTES OFFICE OUTPATIENT VISIT 15 2016-09-04 08:16:00 MINUTES OFFICE OUTPATIENT NEW 30 2016-03-03 13:13:00 MINUTES ACL reconstruction ([id number]) Marco, Antonia Blood Pressure Monitoring Marco, Antonia Colonoscopy, Screening Marco, Antonia Craniotomy, decompressive Marco, Antonia ([id number]) Excision, dermoid cyst, ovary, Marco, Antonia laparoscopic ([id number]) Hysterectomy Marco, Antonia Mammogram, Screening Marco, Antonia Results Test Description Test Time Test Comments Text Results Atomic Results Result Comments SARS-CoV-2 RNA Resp Ql TRESA+probe 2020-07-03 00:00:00 Test Item Value Reference Range Comments SARS-CoV-2 RNA Resp Ql TRESA+probe Not detected [facility] Case ID: (test code = 60018-0) [id number] SARS-CoV-2 RNA Resp Ql [id number]+[id number] 00:00:00 Test Item Value Reference Range Comments SARS-CoV-2 RNA Resp Ql Not detected [facility] Case TRESA+probe (test code = ID: [id number]) referral source, [id number] 14:06:00 Test Item Value Reference Range Comments referral source, other (test code = REF Tray Knight [facility]) SARS-CoV-2 RNA Resp Ql TRESA+[id number] 00:00:00 Test Item Value Reference Range Comments SARS-CoV-2 RNA Resp Ql Not detected [facility] Case TRESA+probe (test code = ID: [id number]) SARS-CoV-2 RNA Resp Ql [id number] 00:00:00 Test Item Value Reference Range Comments SARS-CoV-2 RNA Resp Ql Not detected [facility] Case TRESA+probe (test code = ID: [id number]) SARS-CoV-2 RNA Resp Ql [id number] 00:00:00 Test Item Value Reference Range Comments SARS-CoV-2 RNA Resp Ql Not detected [facility] Case TRESA+probe (test code = ID: [id number]) SARS-CoV-2 RNA Resp Ql [id number]+[id number] 00:00:00 Test Item Value Reference Range Comments SARS-CoV-2 RNA Resp Ql Not detected [facility] Case TRESA+probe (test code = ID: [id number]) MRI BRAIN W & WO CONTRAST [id number] 11:00:00 <<<<<<<<<<<<<<< THIS IS AN EXTERNAL RADIOLOGY RESULT FROM >>>>>>>>>>>>>>><<<<< <<<<<<<<<<<<<<<<< [facility] >>>>>>>>>> >>>>>>>>>>>>> EXAMINATION: MR BRAIN W/WO HISTORY: Follow-up meningioma. TECHNIQUE: MRI brain without and with contrast. MR Contrast: 6 ml of GadavistCOMPARISON: Head MRIs 07/13/2019, 01/05/2019. RESULT: Acute Change: No evidence of an acute intracranial process. Hemorrhage: Stable small amount of susceptibility artifact marginating the right frontal resection cavity compatiblewith small remote blood byproducts. No abnormal intracranial susceptibility artifact otherwise. Mass Lesion/ Mass Effect: Postsurgical changes redemonstrated from right-sided craniotomy for meningioma resection.There is no extra-axial fluid collection. Stable mild smooth dural thickening underlying the craniotomy which is mostcompatible with postsurgical manipulation. There is no new soft tissue mass, dural based nodularity, or enhancement tosuggest recurrent orresidual neoplasm. Similar minimal curvilinear vascularity within the resection bed likelyreflectingmild postsurgical changes is not significantly changed. No change in appearance of the resection cavityinvolving the vertex and subcortical white matter of the right superior and middle frontal gyri with small amount ofsurrounding T2/FLAIR hyperintense gliosis. Chronic Change: The white matter iswithin normal limits of signal intensity for age. Parenchyma: No significant volume loss for age. Ventricles: Normal caliber and morphology. Skull Base: Hypothalamic and pituitary region are grossly normal. Craniocervical junction is normal. No significantmarrow replacement process. Vasculature: Major intracranial arterial structures and dural venous sinuses demonstrate typical flow voids, suggestingpatency by spin echo criteria. Other: The paranasal sinuses and mastoid air cells are clear. Orbits are unremarkable. Multiple foci of susceptibilityartifact along the left upper neckrelated to prior parotid mass resection. The operative bed is suboptimally evaluatedon the current ex amination though there is no gross evidence of residual mass. Dedicated imaging can be performed ifclinically warranted. IMPRESSION: Stable postsurgical appearance of the brain compared to 07/13/2019 without evidence to suggest recurrent or residualmeningioma.Interval resection of the left parotid gland lesion. Final report electronically signed by: Dawn Ogden, DO Interface, Radresults_Incoming - 01/18/2020 12:20 PM EDT<<<< <<<<<<<<<<< THIS IS AN EXTERNAL RADIOLOGY RESULT FROM >>>>>>>>>>>>>>> <<<<<<<<<<<<<&l t;<<<<<<<< [facility] >>>>>>>>>>>>>&gt ;>>>>>>>>> EXAMINATION: MR BRAIN W/WO HISTORY: Follow-up meningioma. TECHNIQUE: MRI brain without and with contrast. MR Contrast: 6 ml of Gadavist COMPARISON: Head MRIs 07/13/2019, 01/05/2019. RESULT: Acute Change: No evidence of an acute intracranial process. Hemorrhage: Stable small amount of susceptibility artifact marginating the right frontal resection cavity compatible with small remote blood byproducts. No abnormal intracranial susceptibility artifact otherwise. Mass Lesion/ Mass Effect: Postsurgical changes redemonstrated from right-sided craniotomy for meningioma resection. There is no extra-axial fluid collection. Stable mild smooth dural thickening underlying the craniotomy which is most compatible with postsurgical manipulation. There is no new soft tissue mass, dural based nodularity, or enhancement to suggest recurrent or residual neoplasm. Similar minimal c urvilinear vascularity within the resection bed likely reflecting mild postsurgical changes is not significantly changed. No change in appearance of the resection cavity involving the vertex and subcortical white matter of the right superior and middle frontal gyri with small amount of surrounding T2/FLAIR hyperintense gliosis. Chronic Change: The white matter is within normal limits of signal intensity for age. Parenchyma: No significant volume loss for age. Ventricles: Normal caliber and morphology. Skull Base: Hypothalamic and pituitary region are grossly normal. Craniocervical junction is normal. No significant marrow replacement process. Vasculature: Major intracranial arterial structures anddural venous sinuses demonstrate typical flow voids, suggesting patency by spin echo criteria. Other: The paranasal sinuses and mastoid air cells are clear. Orbits are unremarkable. Multiple foci of susceptibility artifact along the left upper neck related to prior parotid mass resection. The operative bed is suboptimally evaluated on the current examination though there is no gross evidence of residual mass. Dedicated imaging can be performed if clinically warranted. IMPRESSION: Stable postsurgicalappearance of the brain compared to 07/13/2019 without evidence to suggest recurrent or residual menin gioma. Interval resection of the left parotid gland lesion. Final report electronically signed by: Dawn Ogden DO 8974-vGrB RNA XXX TRESA+dcnfq-[id number] 00:00:00 Test Item Value Reference Range Comments 2019-nCoV RNA XXX Not detected [facility] Case TRESA+probe-Imp (test code = ID: 1 [id number] 37143-7) MRI NEURO INTERPRETATION OF OUTSIDE FILM ([facility]) (10/12/2019 11:54 AM EDT) 2019-10-12 11:55:13MRI NEURO INTERPRETATION OF OUTSIDE FILM ([facility]) (10/12/2019 11:54 AM EDT)SpecimenImpressionsPerformed At acute intracranial abnormality. Indeterminate heterogeneously enhancing left parotid mass involving the superficial and deep lobes. No abnormal enhancement in the left stylomastoid foramen or along the course of the left facial nerve.[facility] RADNarrativePerformed AtMR brain images are presented for interpretation 10/12/2019 11:55 AM. The study is dated 07/13/2019, was obtained at [facility] andis interpreted at the request of Dr. GEORGE GUTIÉRREZ. EXAM: Magnetic resonance imaging, brain, without and with contrast material.DATE: 10/12/2019 11:54 AMACCESSION: [id number]: 10/12/2019 11:55 AMINTERPRETATION LOCATION: [facility] CLINICAL INDICATION: 54 years old Female with K11.8- Parotid mass COMPARISON: None TECHNIQUE: Multiplanar, multisequence MR imaging of the brain wasperformed without and with I.V. contrast. FINDINGS: Postsurgical changes from right frontal craniotomy with encephalomalacia and gliosis in the underlying brain parenchyma. No acute infarct or intracranial hemorrhage. No midline shift, herniation or hydrocephalus. No extra-axial fluid collection. There is a lobulated, well-circumscribed, T1 hypointense, T2 hyperintense, heterogeneously enhancing lesion in the left parotid gland involving the deep and superficial lobes. It measures 1.9 x 1.6 cm. There is no abnormal enhancement in the left stylomastoid foramen or along the course of the left facial nerve. [facility] RADProcedure NoteInterface, Rad Results In - 10/12/2019 12:27 PM EDTMR brain images are presented for interpretation 10/12/2019 11:55 AM. The study is dated 07/13/2019, was obtained at [facility] and is interpreted at the request of Dr. GEORGE GUTIÉRREZ. EXAM: Magnetic resonance imaging, brain, without and with contrast material. DATE: 10/12/2019 11:54 AM D ICTATED: 10/12/2019 11:55 AM INTERPRETATION LOCATION: [facility] CLINICAL INDICATION: 54 years old Female with K11.8 - Parotid mass COMPARISON: None TECHNIQUE: Multiplanar, multisequence MR imaging of the brain was performed without and with I.V. contrast. FINDINGS: Postsurgical changes from right fron ruby craniotomy with encephalomalacia and gliosis in the underlying brain parenchyma. No acute infarct or intracranial hemorrhage. No midline shift, herniation or hydrocephalus. No extra-axial fluid collection. There is a lobulated, well-circumscribed, T1 hypointense, T2 hyperintense, heterogeneously enhancing lesion in the left parotid gland involving the deep and superficial lobes. It measures 1.9 x1.6 cm. There is no abnormal enhancement in the left stylomastoid foramen or along the course of theleft facial nerve. IMPRESSION: No acute intracranial abnormality. Indeterminate heterogeneously enhancing left parotid mass involving the superficial and deep lobes. No abnormal enhancement in the leftstylomastoid foramen or along the course of the left facial nerve.Performing OrganizationAddressCity/State/ZipcodePhone [facility] [id number], [place] [address]RCC 12 [id number] 15:15:00 Test Item Value Reference Range Comments EKG Text (test code = INTERFACED DOCUMENTS - [facility] 186238) [facility]- OTHERWISE NORMAL ECG -Sinus bradycardiarate<60When compared with ECG of 14-Jul-2018 14:00:52,No significant changeReading Physician &Movahed&Chloe Heart Rate (test code = 53 732409) P-R Interval (test code = 192 181888) P [place] (test code = 707039) 48 QRS Duration (test code = 96 047894) QT Internal (test code = 427 723002) QTcB (test code = 391980) 401 QRS [place] (test code = 43 179537) I-40 [place] (test code = 54 172630) T-40 [place] (test code = 5 850562) T Wave [place] (test code = 50 877700) ST [place] (test code = 980770) 67 BASIC METABOLIC [id number] 12:11:00 Test Item Value Reference Range Comments BUN (test code = 3094-0) 17 mg/dL 10-20 Sodium (test code = 2951-2) 140 mEq/L 136- 145 mEq/L Potassium (test code = 2823-3) 5.0 mEq/L 3.4- 4.4 mEq/L Chloride (test code = 2075-0) 104 mEq/L 98- 107 mEq/L CO2 (test code = 8-9) 29 mEq/L 22- 29 mEq/L Anion Gap (test code = 00378-7) 7 mEq/L 4- 12 mEq/L Glucose (test code = 2345-7) 101 mg/dL 70-105 Creatinine (test code = 2160-0) 0.93 mg/dL 0.57-1.11 Glomerular Filtration Rate (test code 70 mL/Min/1.73 m2 >=59 mL/ Min/1.73 m2 = 93828-6) Calcium (test code = 51881-8) 9.7 mg/dL 8.4-10.2 Osmo (Calc'd) (test code = 51792-1) 293 mOsm/kg mOsm/kg Bun:Creat Ratio (test code = 3097-3) 18.28 Lab Interpretation (test code = Abnormal 71993-7) PT (PROTHROMBIN TIME) WITH [id number] 12:10:00 Test Item Value Reference Range Comments PT (test code = 5902-2) 11.7 seconds 10.2- 12.9 seconds INR (test code = 6301-6) 1.0 STD The rapeutic Range 2-3 Lab Interpretation (test Normal code = 24085-3) [id number] 12:10:00 Test Item Value Reference Range Comments PTT (test code = 44485-8) 30.2 seconds 25.1- 36.5 seconds Lab Interpretation (test code = 27763-7) Normal CBC WITH [id number] 12:06:00 Test Item Value Reference Range Comments WBC (White Blood Cell Count) (test code = 4.88 k/uL 4.50- 11.00 k/uL 6690-2) RBC (Red Blood Cell Count) (test code = 789-8) 4.61 M/uL 3 .80- 5.20 M/uL Hemoglobin (test code = 718-7) 13.1 g/dL 12-16 Hematocrit (test code = 4544-3) 41.6 % 35-47 MCV (Mean Corpuscular Volume) (test code = 90.2 fL 80-10 0 787-2) MCH (Mean Corpuscular Hemoglobin) (test code = 28.4 pg 2 6-34 785-6) MCHC (Mean Corpuscular Hemoglobin 31.5 g/dL 32-36 Concentration) (test code = 786-4) RDW (Red Cell Distribution Width) (test code = 13.2 % 1 1.5-14.5 788-0) Platelet Count (test code = 777-3) 332 k/uL 150- 440 k/uL MPV (Mean Platelet Volume) (test code = 10.1 fL 7.4-10.6 17925-0) Nucleated RBC (test code = 65726-4) 0.0 /100 WBC 0 /100 WBC Absolute Nucleated RBC (#) (test code = 771-6) <0.01 0 k/uL Neutrophils (%) (test code = 96508-8) 51 % Lymphocytes (%) (test code = 736-9) 39 % Monocytes (%) (test code = 5905-5) 7 % Eosinophils (%) (test code = 713-8) 2 % Basophils (%) (test code = 706-2) 1 % Immature Granulocytes (%) (test code = 0 % 03153-5) Absolute Neutrophils (#) (test code = 89218-5) 2.48 k/uL 1 .80- 7.70 k/uL Absolute Lymphocytes (#) (test code = 731-0) 1.91 k/uL 1.0 0- 4.80 k/uL Absolute Monocytes (#) (test code = 742-7) 0.34 k/uL 0.00- 0.80 k/uL Absolute Eosinophils (#) (test code = 711-2) 0.10 k/uL 0.0 0- 0.50 k/uL Absolute Basophils (#) (test code = 704-7) 0.04 k/uL 0.00- 0.20 k/uL Absolute Immature Granulocytes (#) (test code 0.01 k/uL 0 k/uL = 54738-1) Lab Interpretation (test code = 19221-4) Abnormal XRAY CHEST 2 [id number] 10:12:00Impression: The lungs are clear. Heart and mediastinal contour are normal. No pleural effusions. No pneumothorax. Bony thorax is unremarkable. Reading Doctor: Jimmy Lund Electronic Signature by: Jimmy Lund Study: XRAY CHEST 2 VIEWS Indication: pre-op Comparison: 07/14/2018 Interface, Radresults_Incoming - 08/15/2019 10:15 AM EST Study: XRAY CHEST 2 VIEWS Indication: pre-op Comparison: 07/14/2018 IMPRESSION Impression: The lungs are clear. Heart and mediastinal contour are normal. No pleural effusions. No pneumothorax. Bony thorax is unremarkable. Reading Doctor: Jimmy Lund Electronic Signature by: Jimmy LundPOC - HEMOGLOBIN W/ CPT ([id number])2019-08-15 00:00:00 Test Item Value Reference Range Comments Hemoglobin (test code = 954438) 13.0 g/dL 11.9-16.1 MRI BRAIN W & WO CONTRAST [id number] 13:37:00 <<<<<<<<<<<<<<< THIS IS AN EXTERNAL RADIOLOGY RESULT FROM >>>>>>>>>>>>>>><<<<< <<<<<<<<<<<<<<<<< [facility] >>>>>>>>>> >>>>>>>>>>>>>NAME: CHAYO MARCUS DHRUV [facility] : : [phone] [place] [address]- PHYSICIANK. ISRAEL WILSON, MDDATE: 07-13-[address] [place] [address]-NUK-MGET MR CONTRAST NOS,1MLMRI BRAIN W/O & W/CONTRASTMR BRAIN, WITHOUT AND WITH CONTRAST07/13/2019Indication: (1) STAT APPT AT 2:00...(2) Menigioma F/U...(3) 7 ml GadavistComparison:01/05/2019Technique:Multi-planar T1, T2, FLAIR, and diffusion weighted MR images of the brain were obtained before and followinguneventful administration of 7 mL of Gadavist gadolinium.Findings:Stable operative changes from right lateral frontal craniotomy. 4.3 cm resection cavity. No evidence ofrecurrent meningioma.Known 1.6 cm deep lobe of the left parotid lesion is grossly unchanged from 06/25/2018.IMPRESSION:1. Operative changes from right frontal craniotomy for meningioma resection. No definite recurrence.2. Stable 1.6 cm deep lobe left parotid lesion. Benign and malignant lesions of the parotid gland cannot bedistinguished by imaging, though there are no overtly aggressive features.Final report electronically signed by: MARGARITA Colon MDTRANSCRIBED BY:APPROVED BY: GEORGE VALLADARES 07-13-2019 01:32:49 PMJMP//MVInterface, Radresults_Incoming - 07/13/2019 1:40 PM EST<<<& lt;<<<<<<<<<<< THIS IS AN EXTERNAL RADIOLOGY RESULT FROM >>>>>>>>>>>>>>> <<<<<<<<<<<<&lt ;<<<<<<<<< [facility] >>>>>>>>>>>>> >>>>>>>>>> NAME: CHAYO MARCUS ERAD LOCAL ADDRESS:: [address] [place] [address]- PHYSICIAN Toan WILSON MD DATE: [place] [address]- SANDRA-BASE MR CONTRAST NOS,1ML MRI BRAINW/O & W/CONTRAST MR BRAIN, WITHOUT AND WITH CONTRAST 07/13/2019 Indication: (1) STAT APPT AT2:00...(2) Menigioma F/U...(3) 7 ml Gadavist Comparison: 01/05/2019 Technique: Multi-planar T1, T2, FLAIR, and diffusion weighted MR images of the brain were obtained before and following uneventful administration of 7 mL of Gadavist gadolinium. Findings: Stable operative changes from right lateral frontal craniotomy. 4.3 cm resection cavity. No evidence of recurrent meningioma. Known 1.6 cm deep lobeof the left parotid lesion is grossly unchanged from 06/25/2018. IMPRESSION: 1. Operative changes fromright frontal craniotomy for meningioma resection. No definite recurrence. 2. Stable 1.6 cm deep lobe left parotid lesion. Benign and malignant lesions of the parotid gland cannot be distinguished by imaging, though there are no overtly aggressive features. Final report electronically signed by: MD GEORGE Colon MD TRANSCRIBED BY: APPROVED BY: GEORGE VALLADARES 07-13-2019 01:32:49 PM [facility]//[facility] BRAIN W & WO CONTRAST [id number] 15:39:00 <<<<<<<<<<<<<<< THIS IS AN EXTERNAL RADIOLOGY RESULT FROM >>>>>>>>>>>>>>><<<<< <<<<<<<<<<<<<<<<< [facility] >>>>>>>>>> >>>>>>>>>>>>>NAME:CHAYO MARCUS LOCAL MRN:ADDRESS: : [place], [place]- PHYSICIANK. ISRAEL WILSON, MDDATE:01-05-19 [address] [place], [place]-GAD-BASE MR CONTRAST NOS,1MLMRI BRAIN W/O & W/CONTRASTClinical: 53-year-old, follow-up meningiomaTECHNIQUE:Multiplanar, multisequence imaging of the brain was performed prior to and following administration of 6 mLIV GadavistCOMPARISON:10/13/[address] without contrast. 07/14/2018 brain MRI without and with gadoliniumFINDINGS:Interval resection of dural based right frontal convexityextra-axial mass with minimal dural thickening andnodularity over the resection site with the resection cavity. Mild enhancing tissue is identified deep and inferior tothe resection bed no defined mass.No other mass lesions. No midline or downward shift. There is mild T2 hyperintense signal in the brain adjacent to theresection site. Otherwise there are a few, small, scattered foci of T2 hyperintensesignal in cerebral white matter. Nomidline or downward shift. No active intracranial hemorrhage.Major intracranial vessels exhibit appropriate flow voids.Orbits are unremarkable.The paranasal sinuses, the mastoid air cells and middle ears are clear.IMPRESSION:1. Interval resection of right frontal convexity enhancing mass, imaging features consistent with meningioma2. Minimal nodular enhancement at the resection edge, cannot exclude mild residual tumor.3. No other intracranial masses4. No acute ischemic findings, hemorrhage, midline or downward shiftFinal report electronically signed by: SONNY Vo MDTRANSCRIBED BY:APPROVED BY: KEIRA HENSON 01-05-2019 03:34:11 PMGKL//TEInterface, Radresults_Incoming - 01/05/2019 3:41 PM EDT<<<<<<<<<<<<<<< THIS IS AN EXTERNAL RADIOLOGY RESULT FROM >>>>>>>>>>>>>>> <<<<<<<<<<<<<<<<<<<< << [facility] >>>>>>>>>>>>>>>>>>>> >>> NAME: CHAYO MARCUS ERAD LOCAL MRN: ADDRESS:: [address] [place] [address]- PHYSICIAN Toan WILSON MD DATE: [place] [address]- SANDRA-BASE MR CONTRAST NOS,1ML MRI BRAIN W/O & W/CONTRAST Clinical: 53-year-old, follow-up meningioma TECHNIQUE: Multiplanar, multisequence imaging of the brain was performed prior to and following administration of 6 mL IV Gadavist COMPARISON: 10/13/[address] without contrast. 07/14/2018 brain MRI without and with gadolinium FINDINGS: Interval resection of dural based right frontal convexity extra-axial mass with minimal dural thickening and nodularity over the resection site with the resection cavity. Mild enhancing tissue is identified deep and inferior to the resection bed no defined mass. No other mass lesions. No midline or downward shift. There is mild T2 hyperintense signalin the brain adjacent to the resection site. Otherwise there are a few, small, scattered foci of T2 h yperintense signal in cerebral white matter. No midline or downward shift. No active intracranial hemorrhage. Major intracranial vessels exhibit appropriate flow voids. Orbits are unremarkable. The paranasal sinuses, the mastoid air cells and middle ears are clear. IMPRESSION: 1. Interval resection ofright frontal convexity enhancing mass, imaging features consistent with meningioma 2. Minimal nodular enhancement at the resection edge, cannot exclude mild residual tumor. 3. No other intracranial masses 4. No acute ischemic findings, hemorrhage, midline or downward shift Final report electronicallysigned by: MD KEIRA Vo MD TRANSCRIBED BY: APPROVED BY: KEIRA HENSON 01-05-2019 03:34:11 PM [facility]//TECT HEAD WO CONTRAST [id number] 11:30:00 <<<<<<<<<<<<<<< THIS IS AN EXTERNAL RADIOLOGY RESULT FROM >>>>>>>>>>>>>>><<<<< <<<<<<<<<<<<<<<<< [facility] >>>>>>>>>> >>>>>>>>>>>>>NAME:CHAYO MARCUS [facility] MRN:ADDRESS: : [place], [place]- [facility] CENTERK. ISRAEL WILSON, [facility]ATE:10-13-[address] [place] [address]-CT HEAD/BRAIN WITHOUT CONTRASTCT HEAD, WITHOUT CONTRAST10/13/2018Indication: (1) cerebral convexity meningioma; eval; stat f/u appt @ 1:45Comparison:[facility] 07/23/2018. MRI examination 07/14Technique:Routine axial CT images of the head were obtained from the skull base to the vertex without contrast.Findings:Right frontal craniotomy changes. Minimal low attenuating extra-axial collection at the craniotomy site. 3.2cm resection cavity/encephalomalacia in the right frontal region. Query slight dural based soft tissue fullness withinthe high right medial convexity adjacent to the falx(image 23) though this does not definitely represent an area oftumor on the MR examination. Mild chronic microvascular ischemic changes within the cerebral white matter. Mild carotidatherosclerotic calcification.IMPRESSION:1. Operative changes from right foraminal craniotomy. Minimal residual extra-axial collection. Right frontal lobeencephalomalacia. The bulk of previously seen meningioma has been resected. Query nonspecific fullness along the highmedial anterior right convexity, though this is nota definite area prior tumor. If a detailed restaging is desired, MRIis recommended.2. Mild chronic microvascular ischemic changes within the cerebral white matter. Mild carotid atheroscleroticcalcification.Final report electronically signed by: MARGARITA Colon MDTRANSCRIBED BY:APPROVED BY: GEORGE VALLADARES 10-13-2018 11:25:13 AMJMP//William Honeycutt_Incoming - 10/13/2018 11:40 AM EDT<<<<<<<<<<<<<<< THIS IS AN EXTERNAL RADIOLOGY RESULT FROM >>>>>>>>>>>>>>> <<<<<<<& lt;<<<<<<<<<<<<<< [facility] >>>>>>>&g t;>>>>>>>>>>>>>>> NAME: CHAYO MARCUS DHRUV ERAD LOCAL MRN: ADDRESS:: [address] [place] [address]- PHYSICIAN NATHALIE WILSON MD DATE: [place] [address]- CT HEAD/BRAIN WITHOUT CONTRAST CT HEAD, WITHOUT CONTRAST 10/13/2018 Indication: (1) cerebral convexity meningioma; eval; stat f/u appt @ 1:45 Comparison: [facility] 07/23/2018. MRI examination 07/14/2018 Technique: Routine axial CT images of the head were obtained from the skull base to the vertex without contrast. Findings: Right frontal craniotomy changes. Minimal low attenuating extra-axial collection at the craniotomy site. 3.2cm resection cavity/encephalomalacia in the right frontal region. Query slight dural based soft tissue fullness within the high right medial convexity adjacent to the falx (image 23) though this does not definitely represent an area of tumor on the MR examination. Mild chronic microvascular ischemic changes within the cerebral white matter. Mild carotid atherosclerotic calcification. IMPRESSION: 1. Operative changes from right foraminal craniotomy. Minimal residual extra-axial collection. Right frontal lobe encephalomalacia. The bulk of previously seen meningioma has been resected. Query nonspecific fullness along the high medial anterior right convexity, though this is not a definite area prior tumor. If a detailed restaging is desired, MRI is recommended. 2. Mild chronic microvascular ischemic changes within the cerebral white matter. Mild carotid atherosclerotic calcification. Final report electronically signed by: MD GEORGE Colon MD TRANSCRIBED BY: APPROVED BY: GEORGE VALLADARES 10-13-2018 11:25:13 AM [facility]//ETGLUCOSE, POC (GLUCOMETER)2018-07-27 07:50:12 Test Item Value Reference Range Comments Glucose (poct) (test code = 2339-0) 106 mg/dL 70-100 Lab Interpretation (test code = 66601-0) Abnormal BASIC METABOLIC [id number] 06:02:47 Test Item Value Reference Range Comments BUN (test code = 3094-0) 12 mg/dL 10-20 Sodium (test code = 2951-2) 137 mEq/L 136- 145 mEq/L Potassium (test code = 2823-3) 4.1 mEq/L 3.5- 5.0 mEq/L Chloride (test code = 2075-0) 105 mEq/L 98- 107 mEq/L Bicarbonate (TCO2) (test code = 2027-9) 26 mEq/L 22- 29 m Eq/L Glucose (test code = 2345-7) 116 mg/dL 70-105 Creatinine (test code = 2160-0) 0.72 mg/dL 0.57-1.11 Anion Gap (calc.) (test code = 67562-9) 6 mEq/L 4- 12 mE q/L Calcium (test code = 99873-6) 8.6 mg/dL 8.4-10.2 GFR, non-AA, (est.) (test code = 85 mL/Min/1.73 m2 >59 mL/Min/1. 73 m2 37704-9) GFR, AA, (est.) (test code = 76511-4) >90 >59 mL/Min /1.73 m2 Lab Interpretation (test code = Abnormal 67389-8) CBC WITH [id number] 05:35:19 Test Item Value Reference Range Comments WBC (test code = 6690-2) 8.90 k/uL 4.5- 11.0 k/uL RBC (test code = 789-8) 3.24 M/uL 3.8- 5.2 M/uL Hemoglobin (test code = 718-7) 9.5 g/dL 12-16 Hematocrit (calc.) (test code = 28.3 % 35-47 4544-3) MCV (test code = 787-2) 87 fL 80-100 MCH (test code = 785-6) 29.4 pg 26-34 MCHC (calc.) (test code = 33.7 g/dL 32-36 786-4) RDW (test code = 788-0) 13.1 % <14.5 Platelet (test code = 777-3) 203 k/uL 150- 440 k/uL Mean Platelet Volume (test code 8.8 fL 7.4-10.6 = 14796-6) Neutrophil (%) (test code = 87 % 41297-9) Lymphocyte (%) (test code = 4 % 736-9) Monocyte (%) (test code = 9 % 5905-5) Eosinophil (%) (test code = 0 % 713-8) Basophil (%) (test code = 0 % 706-2) Neutrophil (#) (test code = 7.70 k/uL 1.8- 7.7 k/uL 27512-3) Lymphocyte (#) (test code = 0.30 k/uL 1.0- 4.8 k/uL 731-0) Monocyte (#) (test code = 0.80 k/uL 0.0- 0.8 k/uL 742-7) Eosinophil (#) (test code = 0.00 k/uL 0.0- 0.5 k/uL 711-2) Basophil (#) (test code = 0.00 k/uL 0.0- 0.2 k/uL 704-7) Band (est.) (test code = <10% <10 % 67435-2) RBC Morphology (test code = NO SIGNIFICANT RBC 6742-1) MORPHOLOGIC ABNORMALITIES SEEN Platelet Morphology (test code PLATELETS CLUMPED, ESTIMATE = 45524-0) >100,000 Lab Interpretation (test code = Abnormal 63990-8) [id number] 05:28:20 Test Item Value Reference Range Comments Magnesium (test code = 98512-2) 2.4 mg/dL 1.6-2.6 [id number] 05:28:20 Test Item Value Reference Range Comments Phosphorus (test code = 2777-1) 2.4 mg/dL 2.3-4.7 CALCIUM, IONIZED, WHOLE [id number] 04:52:09 Test Item Value Reference Range Comments Calcium, Ionized (test code = 13954-2) 4.7 mg/dL 4.5-5.3 CT HEAD W/O IV [id number] 08:41:00Impression: 1.Expected postsurgical changes in the right frontal lobe. Right frontal lobe edematous changes with 2 mm right to left midline shift. Reading Doctor: Christopher Sr Electronic Signature by: Christopher Sr CT HEAD WITHOUT CONTRAST Clinical Indication:Post-op follow up s/p right frontal craniotomy for meningioma. Comparison: No comparison Technique: 5 mm axial images were obtained from vertex to skull base without intravenous contrast. Findings: Status post right frontal craniotomy. Small amounts of extra-axial blood products and gas deep to the craniotomy defect of the type typically seen after surgery. There are edematous changes in the right frontal lobe around the site of surgery. Right-sided scalp drain is present. No hydrocephalus. 2 mm right to left midline shift. The par anasal sinuses and mastoid air cells are clear. Interface, Radresults_Incoming - 07/23/2018 8:[address] HEAD WITHOUT CONTRAST Clinical Indication: Post-op follow up s/p right frontal craniotomy for meningioma. Comparison: No comparison Technique: 5 mm axial images were obtained from vertex to skullbase without intravenous contrast. Findings: Status post right frontal craniotomy. Small amounts of extra-axial blood products and gas deep to the craniotomy defect of the type typically seen after surgery. There are edematous changes in the right frontal lobe around the site of surgery. Right-sided scalp drain is present. No hydrocephalus. 2 mm right to left midline shift. The paranasal sinuses and m astoid air cells are clear. IMPRESSION Impression: 1. Expected postsurgical changes in the right frontal lobe. Right frontal lobe edematous changes with 2 mm right to left midline shift. Reading Doctor: Christopher Sr Electronic Signature by: Christopher SrCOMPREHENSIVE METABOLIC [id number] 16:54:58 Test Item Value Reference Range Comments Sodium (test code = 2951-2) 136 mEq/L 136- 145 mEq/L Potassium (test code = 2823-3) 5.0 mEq/L 3.5- 5.0 mEq/L Chloride (test code = 2075-0) 108 mEq/L 98- 107 mEq/L Bicarbonate (TCO2) (test code = 8-9) 18 mEq/L 22- 29 m Eq/L Calcium (test code = 67466-6) 8.4 mg/dL 8.4-10.2 Glucose (test code = 2345-7) 139 mg/dL 70-108 BUN (test code = 3094-0) 17 mg/dL 10-20 Protein, Total (test code = 2885-2) 6.1 g/dL 6.4-8.3 Albumin (test code = 1751-7) 3.4 g/dL 3.5-5.2 Bilirubin, Total (test code = 1975-2) 0.1 mg/dL 0.1-1.2 Alkaline Phosphatase (test code = 51 U/L 40-150 6768-6) AST (SGOT) (test code = 1920-8) 15 U/L <55 Creatinine (test code = 2160-0) 0.95 mg/dL 0.57-1.11 Anion Gap (calc.) (test code = 62873-1) 10 mEq/L 4- 12 mE q/L ALT (SGPT) (test code = 1742-6) 9 U/L 5-34 GFR, non-AA, (est.) (test code = 62 mL/Min/1.73 m2 >59 mL/Min/1. 73 m2 35077-2) GFR, AA, (est.) (test code = 59918-2) 75 mL/Min/1.73 m2 >59 mL/M in/1.73 m2 Lab Interpretation (test code = Abnormal 70086-7) TYPE & [id number] 21:56:41 Test Item Value Reference Range Comments PRODUCT CODE (test code = COMPONENT GROUP FOR RED CELLS 933-2) Blood Type ABO, Rh (test code A POS = 882-1) Antibody Screen (test code = NEG 890-4) BASIC METABOLIC [id number] 19:49:09 Test Item Value Reference Range Comments BUN (test code = 3094-0) 22 mg/dL 10-20 Sodium (test code = 2951-2) 138 mEq/L 136- 145 mEq/L Potassium (test code = 2823-3) 4.5 mEq/L 3.5- 5.0 mEq/L Chloride (test code = 2075-0) 101 mEq/L 98- 107 mEq/L Bicarbonate (TCO2) (test code = 2027-9) 31 mEq/L 22- 29 m Eq/L Glucose (test code = 2345-7) 68 mg/dL 70-108 Creatinine (test code = 2160-0) 0.89 mg/dL 0.57-1.11 Anion Gap (calc.) (test code = 47452-8) 6 mEq/L 4- 12 mE q/L Calcium (test code = 47461-3) 9.7 mg/dL 8.4-10.2 GFR, non-AA, (est.) (test code = 67 mL/Min/1.73 m2 >59 mL/Min/1. 73 m2 84815-3) GFR, AA, (est.) (test code = 40483-1) 81 mL/Min/1.73 m2 >59 mL/M in/1.73 m2 Lab Interpretation (test code = Abnormal 79833-3) URINALYSIS, [id number] 19:44:20 Test Item Value Reference Range Comments Appearance, urine (test code = 5767-9) CLEAR CLEAR^DAYA AR Color, urine (test code = 5778-6) YELLOW YEL^YELLOW Specific Duck, urine (test code = 5811-5) >1.035 1.0 05-1.030 pH, urine (test code = 5803-2) 6.0 4.5-8.0 Protein, urine (test code = 5804-0) TRACE NEG^NEG Glucose, urine (test code = 5792-7) NEG NEG^NEG Ketones, urine (test code = 5797-6) NEG NEG^NEG Hemoglobin, urine (test code = 5794-3) NEG NEG^NEG Urobilinogen, urine (test code = 10952-5) NORM NORM^N ORM Bilirubin, urine (test code = 5770-3) NEG NEG^NEG Nitrites, urine (test code = 5802-4) NEG NEG^NEG Leukocyte Esterase, urine (test code = 5799-2) 2+ N EG^NEG RBC, urine (test code = 77072-2) NONE SEEN 0 /HPF WBC, urine (test code = 5821-4) 5-19 0 /HPF Epithelial Cells, urine (test code = 5787-7) FEW /HP F Epithelial Cells, Non-Squamous, urine (test code = FEW /HPF 51518-8) Bacteria, urine (test code = 06477-6) NONE SEEN NNSN^NONE SEEN Lab Interpretation (test code = 19689-8) Abnormal CBC WITH [id number] 19:37:54 Test Item Value Reference Range Comments WBC (test code = 6690-2) 5.60 k/uL 4.5- 11.0 k/uL RBC (test code = 789-8) 4.68 M/uL 3.8- 5.2 M/uL Hemoglobin (test code = 718-7) 13.8 g/dL 12-16 Hematocrit (calc.) (test code = 4544-3) 41.8 % 35-47 MCV (test code = 787-2) 90 fL 80-100 MCH (test code = 785-6) 29.4 pg 26-34 MCHC (calc.) (test code = 786-4) 32.9 g/dL 32-36 RDW (test code = 788-0) 13.4 % <14.5 Platelet (test code = 777-3) 270 k/uL 150- 440 k/uL Mean Platelet Volume (test code = 02534-2) 9.2 fL 7.4-1 0.6 Neutrophil (%) (test code = 98821-9) 51 % Lymphocyte (%) (test code = 736-9) 39 % Monocyte (%) (test code = 5905-5) 6 % Eosinophil (%) (test code = 713-8) 3 % Basophil (%) (test code = 706-2) 1 % Neutrophil (#) (test code = 27682-3) 2.90 k/uL 1.8- 7.7 k/ uL Lymphocyte (#) (test code = 731-0) 2.20 k/uL 1.0- 4.8 k/uL Monocyte (#) (test code = 742-7) 0.30 k/uL 0.0- 0.8 k/uL Eosinophil (#) (test code = 711-2) 0.20 k/uL 0.0- 0.5 k/uL Basophil (#) (test code = 704-7) 0.10 k/uL 0.0- 0.2 k/uL PT (PROTHROMBIN TIME) WITH [id number] 19:35:49 Test Item Value Reference Range Comments PT (test code = 5902-2) 10.8 sec 10.2- 12.9 sec INR (test code = 6301-6) 1.0 INR, Therapeutic Range (test code = STD THER RANGE 2-3 887942) [id number] 19:35:49 Test Item Value Reference Range Comments aPTT (test code = 35879-3) 31.4 sec 25.1- 36.5 sec XRAY CHEST 2 [id number] 15:47:00Impression: No evidence for active pulmonary disease. Reading Doctor: Jameel Gee Electronic Signature by: Jameel Gee History: Preop. Comparison: None. Technique: PA and lateral chest radiographs Findings: PA and lateral radiographs of the chest were obtained. The heart and pulmonary vessels appear within normal limits and the lungs are clear. The mediastinal and hilar contours are unremarkable. There are no pleural effusions. No significant osseous abnormalities are noted. Prudence, Radresults_Incoming - 07/14/2018 3:50 PM EST History: Preop. Comparison: None. Technique: PA and lateral chest radiographs Findings: PA and lateral radiographs of the chest were obtained. The heart and pulmonary vessels appear within normal limits and the lungs are clear. The mediastinal and hilar contours are unremarkable. There are no pleural effusions. No significant osseous abnormalities are noted. IMPRESSION Impression: No evidence for active pulmonary disease. Reading Doctor: Jameel Gee Electronic Signature by: Heidi Gee 12 [id number] 14:56:00 Test Item Value Reference Range Comments EKG Text (test code = INTERFACED [facility]UMENTS - [facility] 065962) [facility]- OTHERWISE NORMAL ECG -Sinus bradycardiarate<60No previous ECG available for comparisonReading PhysicianPeterWagner [id number] Heart Rate (test code = 59 BPM BPM 911678) P [place] (test code = 50 degrees degrees 109813) I-40 [place] (test code = 46 degrees degrees 098396) T-40 [place] (test code = 69 degrees degrees 407854) QRS [place] (test code = 65 degrees degrees 977857) ST [place] (test code = 129 degrees degrees 780919) T Wave [place] (test code = 72 degrees degrees 739931) CBC With Differential/Platelet ([id number]) (72206)2016-09-05 00:00:00 Test Item Value Reference Range Comments Monocytes(Absolute) (test code = 742-7) 0.3 x10E3/uL 0.1-0.9 Eos (test code = 713-8) 4 % Eos (Absolute) (test code = 711-2) 0.2 x10E3/uL 0.0-0.4 Neutrophils (test code = 770-8) 51 % Baso (Absolute) (test code = 704-7) 0.0 x10E3/uL 0.0-0.2 Neutrophils (Absolute) (test code = 751-8) 2.6 x10E3/uL 1.4-7 .0 RDW (test code = 788-0) 13.9 % 12.3-15.4 Lymphs (Absolute) (test code = 731-0) 1.9 x10E3/uL 0.7-3.1 MCH (test code = 785-6) 28.5 pg 26.6-33.0 Basos (test code = 706-2) 1 % Immature Granulocytes (test code = 09391-2) 0 % MCV (test code = 787-2) 88 fL 79-97 Monocytes (test code = 5905-5) 6 % Platelets (test code = 777-3) 328 x10E3/uL 150-379 Immature Grans (Abs) (test code = 39747-4) 0.0 x10E3/uL 0.0-0 .1 MCHC (test code = 786-4) 32.6 g/dL 31.5-35.7 Lymphs (test code = 736-9) 38 % Hemoglobin (test code = 718-7) 12.9 g/dL 11.1-15.9 Hematocrit (test code = 4544-3) 39.6 % 34.0-46.6 RBC (test code = 789-8) 4.52 x10E6/uL 3.77-5.28 WBC (test code = 6690-2) 5.1 x10E3/uL 3.4-10.8 Lipase Serum ([id number]) (81159)2016-09-05 00:00:00 Test Item Value Reference Range Comments Lipase, Serum (test code = 3040-3) 43 U/L 0-59 Amylase Serum ([id number]) (74814)2016-09-05 00:00:00 Test Item Value Reference Range Comments Amylase, Serum (test code = 1798-8) 57 U/L 31-124 Comp. Metabolic Panel ([id number]) (91602)2016-09-05 00:00:00 Test Item Value Reference Range Comments A/G Ratio (test code = 1759-0) 1.6 1.2-2.2 Sodium, Serum (test code = 2951-2) 141 mmol/L 134-144 Carbon Dioxide, Total (test code = 2028-9) 25 mmol/L 18-29 eGFR If Africn Am (test code = 15942-3) 87 mL/min/1.73 >59 Chloride, Serum (test code = 2075-0) 101 mmol/L 96-106 Potassium, Serum (test code = 2823-3) 5.0 mmol/L 3.5-5.2 BUN (test code = 3094-0) 16 mg/dL 6-24 Albumin, Serum (test code = 1751-7) 4.3 g/dL 3.5-5.5 Calcium, Serum (test code = 67516-3) 9.4 mg/dL 8.7-10.2 Protein, Total, Serum (test code = 2885-2) 7.0 g/dL 6.0-8 .5 AST (SGOT) (test code = 1920-8) 17 IU/L 0-40 Alkaline Phosphatase, S (test code = 6768-6) 70 IU/L 39- 117 Glucose, Serum (test code = 2345-7) 95 mg/dL 65-99 eGFR If NonAfricn Am (test code = 75069-5) 76 mL/min/1.73 >59 ALT (SGPT) (test code = 1742-6) 14 IU/L 0-32 BUN/Creatinine Ratio (test code = 3097-3) 18 9-23 Creatinine, Serum (test code = 2160-0) 0.89 mg/dL 0.57-1.00 Bilirubin, Total (test code = 1975-2) 0.3 mg/dL 0.0-1.2 Globulin, Total (test code = 08108-1) 2.7 g/dL 1.5-4.5 Lipid Panel w/ Chol/HDL Ratio ([id number])2016-09-05 00:00:00 Test Item Value Reference Range Comments LDL Cholesterol Calc (test code = 26606-8) 177 mg/dL 0-99 Triglycerides (test code = 2571-8) 132 mg/dL 0-149 VLDL Cholesterol Denis (test code = 06326-4) 26 mg/dL 5-40 T. Chol/HDL Ratio (test code = 9830-1) 4.5 ratio units 0.0-4.4 Cholesterol, Total (test code = 2093-3) 261 mg/dL 100-199 HDL Cholesterol (test code = 2085-9) 58 mg/dL >39 TSH+Free T4 ([id number])2016-09-05 00:00:00 Test Item Value Reference Range Comments TSH (test code = 79393-6) 2.560 uIU/mL 0.450-4.500 T4,Free(Direct) (test code = 3024-7) 1.07 ng/dL 0.82-1.77 SARS-COV-2, TRESA Test Item Value Reference Range Comments SARS-COV-2, TRESA LDTNOT - Not NOT DETECTED NOT DETECTEDTHIS NUCLEIC ACID (test code = Detected AMPLIFICATION TE ST WAS DEVELOPED AND 97721-6) ITS PERFORMANCEC HARACTERISTICS DETERMINED BY [employer]. NUCLEIC ACIDAMPL IFICATION TESTS INCLUDE PCR AND TMA. THIS TEST HAS NOT BEEN FDACLEA RED OR APPROVED. THIS TEST HAS BE EN AUTHORIZED BY FDA UNDER ANEMERGENC Y USE AUTHORIZATION (EUA). THIS TEST IS ONLY AUTHORIZED FORTHE DURATION OF TIME THE DECLARATION THAT CIRCUMSTANCES EXISTJUSTIFYING THE AUTHORIZATION OF THE EMERGENCY US E OF IN VITRODIAGNOSTIC TESTS FOR DETECTION OF SARS-COV-2 KRYSTA AND/OR DIAGNOSISOF COVI D-19 INFECTION UNDER SECTION 564(B)(1 ) OF THE ACT, 21 U.S.C.360BBB-3(B ) (1), UNLESS THE AUTHORIZATION IS TERMINATED OR REVOKEDSOONER.WH EN DIAGNOSTIC TESTING IS NEGAT KE, THE POSSIBILITY OF A FALSENEGATI VE RESULT SHOULD BE CONSIDERED IN TH E CONTEXT OF A PATIENT'SRECENT EXPOSURES AND THE PRESENCE OF CLIN ICAL SIGNS AND SYMPTOMSCONSISTE NT WITH COVID-19. AN INDIVIDUAL WITHO UT SYMPTOMS OF COVID-19AND WHO IS NOT SHEDDING SARS-COV-2 VIRUS WOULD EXPECT TO HAVE ANEGATIVE ( NOT DETECTED) RESULT IN THIS ASSAY. SARS-COV-2, TRESA Test Item Value Reference Range Comments SARS-COV-2, TRESA LDTNOT - Not NOT DETECTED NOT DETECTEDTHIS NUCLEIC ACID (test code = Detected AMPLIFICATION TE ST WAS DEVELOPED AND 28614-4) ITS PERFORMANCEC HARACTERISTICS DETERMINED BY [employer]. NUCLEIC ACIDAMPL IFICATION TESTS INCLUDE PCR AND TMA. THIS TEST HAS NOT BEEN FDACLEA RED OR APPROVED. THIS TEST HAS BE EN AUTHORIZED BY FDA UNDER ANEMERGENC Y USE AUTHORIZATION (EUA). THIS TEST IS ONLY AUTHORIZED FORTHE DURATION OF TIME THE DECLARATION THAT CIRCUMSTANCES EXISTJUSTIFYING THE AUTHORIZATION OF THE EMERGENCY US E OF IN VITRODIAGNOSTIC TESTS FOR DETECTION OF SARS-COV-2 KRYSTA AND/OR DIAGNOSISOF COVI D-19 INFECTION UNDER SECTION 564(B)(1 ) OF THE ACT, 21 U.S.C.360BBB-3(B ) (1), UNLESS THE AUTHORIZATION IS TERMINATED OR REVOKEDSOONER.WH EN DIAGNOSTIC TESTING IS NEGAT KE, THE POSSIBILITY OF A FALSENEGATI VE RESULT SHOULD BE CONSIDERED IN TH E CONTEXT OF A PATIENT'SRECENT EXPOSURES AND THE PRESENCE OF CLIN ICAL SIGNS AND SYMPTOMSCONSISTE NT WITH COVID-19. AN INDIVIDUAL WITHO [place] SYMPTOMS OF COVID-19AND WHO IS NOT SHEDDING SARS-COV-2 VIRUS WOULD EXPECT TO HAVE ANEGATIVE ( NOT DETECTED) RESULT IN THIS ASSAY. SARS-COV-2, TRESA Test Item Value Reference Range Comments SARS-COV-2, TRESA LDTNOT - Not NOT DETECTED NOT DETECTEDTHIS NUCLEIC ACID (test code = Detected AMPLIFICATION TE ST WAS DEVELOPED AND 33774-5) ITS PERFORMANCEC HARACTERISTICS DETERMINED BY [employer]. NUCLEIC ACIDAMPL IFICATION TESTS INCLUDE PCR AND TMA. THIS TEST HAS NOT BEEN FDACLEA RED OR APPROVED. THIS TEST HAS BE EN AUTHORIZED BY FDA UNDER ANEMERGENC Y USE AUTHORIZATION (EUA). THIS TEST IS ONLY AUTHORIZED FORTHE DURATION OF TIME THE DECLARATION THAT CIRCUMSTANCES EXISTJUSTIFYING THE AUTHORIZATION OF THE EMERGENCY US E OF IN VITRODIAGNOSTIC TESTS FOR DETECTION OF SARS-COV-2 KRYSTA AND/OR DIAGNOSISOF COVI D-19 INFECTION UNDER SECTION 564(B)(1 ) OF THE ACT, 21 U.S.C.360BBB-3(B ) (1), UNLESS THE AUTHORIZATION IS TERMINATED OR REVOKEDSOONER.WH EN DIAGNOSTIC TESTING IS NEGAT KE, THE POSSIBILITY OF A FALSENEGATI VE RESULT SHOULD BE CONSIDERED IN TH E CONTEXT OF A PATIENT'SRECENT EXPOSURES AND THE PRESENCE OF CLIN ICAL SIGNS AND SYMPTOMSCONSISTE NT WITH COVID-19. AN INDIVIDUAL WITHO UT SYMPTOMS OF COVID-19AND WHO IS NOT SHEDDING SARS-COV-2 VIRUS WOULD EXPECT TO HAVE ANEGATIVE ( NOT DETECTED) RESULT IN THIS ASSAY. CMP14+EGFR Test Item Value Reference Range Comments GLUCOSE (test code = 2345-7) 89 MG/DL 65-99 BUN (test code = 3094-0) 19 MG/DL 6-24 CREATININE (test code = 2160-0) .89 MG/DL 0.57-1.00 EGFR IF NONAFRICN AM (test code = 97199-5) 74 ML/MIN/1.73 >59 EGFR IF AFRICN AM (test code = 04782-3) 85 ML/MIN/1.73 >59 BUN/CREATININE RATIO (test code = 3097-3) 21 9-23 SODIUM (test code = 2951-2) 140 MMOL/L 134-144 POTASSIUM (test code = 2823-3) 4 MMOL/L 3.5-5.2 CHLORIDE (test code = 2075-0) 104 MMOL/L 96-106 CARBON DIOXIDE, TOTAL (test code = 8-9) 23 MMOL/L 20-29 CALCIUM (test code = 92033-3) 9.6 MG/DL 8.7-10.2 PROTEIN, TOTAL (test code = 2885-2) 7.1 G/DL 6.0-8.5 ALBUMIN (test code = 1751-7) 4.4 G/DL 3.8-4.9 GLOBULIN, TOTAL (test code = 94216-7) 2.7 G/DL 1.5-4.5 A/G RATIO (test code = 1759-0) 1.6 1.2-2.2 BILIRUBIN, TOTAL (test code = 1975-2) .3 MG/DL 0.0-1.2 ALKALINE PHOSPHATASE (test code = 6768-6) 87 IU/L 39-117 AST (SGOT) (test code = 1920-8) 20 IU/L 0-40 ALT (SGPT) (test code = 1742-6) 11 IU/L 0-32 CBC WITH DIFFERENTIAL/PLATELET Test Item Value Reference Range Comments WBC (test code = 6690-2) 5.2 X10E3/UL 3.4-10.8 RBC (test code = 789-8) 4.56 X10E6/UL 3.77-5.28 HEMOGLOBIN (test code = 718-7) 12.9 G/DL 11.1-15.9 HEMATOCRIT (test code = 4544-3) 39.9 % 34.0-46.6 MCV (test code = 787-2) 88 FL 79-97 MCH (test code = 785-6) 28.3 PG 26.6-33.0 MCHC (test code = 786-4) 32.3 G/DL 31.5-35.7 RDW (test code = 788-0) 13.1 % 11.7-15.4 PLATELETS (test code = 777-3) 348 X10E3/UL 150-450 NEUTROPHILS (test code = 770-8) 46 % LYMPHS (test code = 736-9) 39 % MONOCYTES (test code = 5905-5) 11 % EOS (test code = 713-8) 3 % BASOS (test code = 706-2) 1 % NEUTROPHILS (ABSOLUTE) (test code = 751-8) 2.4 X10E3/UL 1.4-7 .0 LYMPHS (ABSOLUTE) (test code = 731-0) 2 X10E3/UL 0.7-3.1 MONOCYTES(ABSOLUTE) (test code = 742-7) .6 X10E3/UL 0.1-0.9 EOS (ABSOLUTE) (test code = 711-2) .1 X10E3/UL 0.0-0.4 BASO (ABSOLUTE) (test code = 704-7) .1 X10E3/UL 0.0-0.2 IMMATURE GRANULOCYTES (test code = 80905-9) 0 % IMMATURE GRANS (ABS) (test code = 38590-3) 0 X10E3/UL 0.0-0 .1 LIPID PANEL Test Item Value Reference Range Comments CHOLESTEROL, TOTAL (test code = 2093-3) 276 MG/DL 100-199 TRIGLYCERIDES (test code = 2571-8) 104 MG/DL 0-149 HDL CHOLESTEROL (test code = 2085-9) 68 MG/DL >39 VLDL CHOLESTEROL DENIS (test code = 78508-9) 18 MG/DL 5-40 LDL CHOL CALC ([facility]) (test code = 33066-3) 190 MG/DL 0-99 SARS-COV-2, TRESA Test Item Value Reference Range Comments SARS-COV-2, TRESA LDTNOT - Not NOT DETECTED NOT DETECTEDTHIS NUCLEIC ACID (test code = Detected AMPLIFICATION TE ST WAS DEVELOPED AND 46760-6) ITS PERFORMANCEC HARACTERISTICS DETERMINED BY [employer]. NUCLEIC ACIDAMPL IFICATION TESTS INCLUDE PCR AND TMA. THIS TEST HAS NOT BEEN FDACLEA RED OR APPROVED. THIS TEST HAS BE EN AUTHORIZED BY FDA UNDER ANEMERGENC Y USE AUTHORIZATION (EUA). THIS TEST IS ONLY AUTHORIZED FORTHE DURATION OF TIME THE DECLARATION THAT CIRCUMSTANCES EXISTJUSTIFYING THE AUTHORIZATION OF THE EMERGENCY US E OF IN VITRODIAGNOSTIC TESTS FOR DETECTION OF SARS-COV-2 KRYSTA AND/OR DIAGNOSISOF COVI D-19 INFECTION UNDER SECTION 564(B)(1 ) OF THE ACT, 21 U.S.C.360BBB-3(B ) (1), UNLESS THE AUTHORIZATION IS TERMINATED OR REVOKEDSOONER.WH EN DIAGNOSTIC TESTING IS NEGAT KE, THE POSSIBILITY OF A FALSENEGATI VE RESULT SHOULD BE CONSIDERED IN TH E CONTEXT OF A PATIENT'SRECENT EXPOSURES AND THE PRESENCE OF CLIN ICAL SIGNS AND SYMPTOMSCONSISTE NT WITH COVID-19. AN INDIVIDUAL WITHO UT SYMPTOMS OF COVID-19AND WHO IS NOT SHEDDING SARS-COV-2 VIRUS WOULD EXPECT TO HAVE ANEGATIVE ( NOT DETECTED) RESULT IN THIS ASSAY. SARS-COV-2, TRESA Test Item Value Reference Range Comments SARS-COV-2, TRESA LDTNOT - Not NOT DETECTED NOT DETECTEDTHIS NUCLEIC ACID (test code = Detected AMPLIFICATION TE ST WAS DEVELOPED AND 66064-0) ITS PERFORMANCEC HARACTERISTICS DETERMINED BY [employer]. NUCLEIC ACIDAMPL IFICATION TESTS INCLUDE PCR AND TMA. THIS TEST HAS NOT BEEN FDACLEA RED OR APPROVED. THIS TEST HAS BE EN AUTHORIZED BY FDA UNDER ANEMERGENC Y USE AUTHORIZATION (EUA). THIS TEST IS ONLY AUTHORIZED FORTHE DURATION OF TIME THE DECLARATION THAT CIRCUMSTANCES EXISTJUSTIFYING THE AUTHORIZATION OF THE EMERGENCY US E OF IN VITRODIAGNOSTIC TESTS FOR DETECTION OF SARS-COV-2 KRYSTA AND/OR DIAGNOSISOF COVI D-19 INFECTION UNDER SECTION 564(B)(1 ) OF THE ACT, 21 U.S.C.360BBB-3(B ) (1), UNLESS THE AUTHORIZATION IS TERMINATED OR REVOKEDSOONER.WH EN DIAGNOSTIC TESTING IS NEGAT KE, THE POSSIBILITY OF A FALSENEGATI VE RESULT SHOULD BE CONSIDERED IN TH E CONTEXT OF A PATIENT'SRECENT EXPOSURES AND THE PRESENCE OF CLIN ICAL SIGNS AND SYMPTOMSCONSISTE NT WITH COVID-19. AN INDIVIDUAL WITHO [place] SYMPTOMS OF COVID-19AND WHO IS NOT SHEDDING SARS-COV-2 VIRUS WOULD EXPECT TO HAVE ANEGATIVE ( NOT DETECTED) RESULT IN THIS ASSAY. SARS-COV-2, TRESA Test Item Value Reference Range Comments SARS-COV-2, TRESA LDTNOT - Not NOT DETECTED NOT DETECTEDTHIS NUCLEIC ACID (test code = Detected AMPLIFICATION TE ST WAS DEVELOPED AND 72426-5) ITS PERFORMANCEC HARACTERISTICS DETERMINED BY [employer]. NUCLEIC ACIDAMPL IFICATION TESTS INCLUDE PCR AND TMA. THIS TEST HAS NOT BEEN FDACLEA RED OR APPROVED. THIS TEST HAS BE EN AUTHORIZED BY FDA UNDER ANEMERGENC Y USE AUTHORIZATION (EUA). THIS TEST IS ONLY AUTHORIZED FORTHE DURATION OF TIME THE DECLARATION THAT CIRCUMSTANCES EXISTJUSTIFYING THE AUTHORIZATION OF THE EMERGENCY US E OF IN VITRODIAGNOSTIC TESTS FOR DETECTION OF SARS-COV-2 KRYSTA AND/OR DIAGNOSISOF COVI D-19 INFECTION UNDER SECTION 564(B)(1 ) OF THE ACT, 21 U.S.C.360BBB-3(B ) (1), UNLESS THE AUTHORIZATION IS TERMINATED OR REVOKEDSOONER.WH EN DIAGNOSTIC TESTING IS NEGAT KE, THE POSSIBILITY OF A FALSENEGATI VE RESULT SHOULD BE CONSIDERED IN TH E CONTEXT OF A PATIENT'SRECENT EXPOSURES AND THE PRESENCE OF CLIN ICAL SIGNS AND SYMPTOMSCONSISTE NT WITH COVID-19. AN INDIVIDUAL WITHO UT SYMPTOMS OF COVID-19AND WHO IS NOT SHEDDING SARS-COV-2 VIRUS WOULD EXPECT TO HAVE ANEGATIVE ( NOT DETECTED) RESULT IN THIS ASSAY. MR BRAIN W WO CONTRASTPAT NAME: CHAYO MARCUS : 1965[address] SEX: FPHONE: AGE: 52PRIORITY: RALOCATION: RAD ORD PHY: ERMA GOMEZ MD, ENT#: [id number] PT CLASS: REG CLIDATE OF EXAM: 06/29/2018EXAMINATION: MR BRAIN W WO CONTRASTBRAIN MRI WITHOUT AND WITH CONTRASTClinical: 52-year-old with brain mass incidentally noted on CT.T echnique: Multiplanar, multisequence imaging of the brain without and with contrast. Contrast:Gadavist, 6 cc.Comparison: Prior soft tissue neck CT 06/25/2018.Findings: There is a large avidly enhancing,dural based mass in the right frontal lobe measuringup to 6.2 x 3.6 x 5.3 cm and greatest diameter ca using mass effect on underlying right frontal lobe.Displacement of right frontal lobe without significant vasogenic edema. CSF clefts around theperiphery of the cystic lesion with centripetal enhancement pattern characteristic of meningioma.Dural tails. Mass effect causing effacement of the right lateral ventricle and [id number]-[id number] midlineshift estimated at approximately 7 mm. Basilar cisterns are unremarkable.No focal areas of restricted diffusion to indicate acute infarction. Increased diffusion-weightedsignal within the meningioma is a characteristic finding. No focal areas of acute hemorrhage. N ohydrocephalus or abnormal extra-axial fluid collection.Paranasal sinuses and mastoid air cells are clear. Normal flow voids in the major intracranialvessels. Pituitary axis and craniocervical junctionare normal. No marrow replacing lesion.IMPRESSION: 1. Large right frontal meningioma measuring up to6.2 x 3.6 x 5.3 cm and causing masseffect with 7 mm right to left midline shift. No significant surrounding vasogenic edema within thebrain parenchyma. No other lesions.Final report electronically signed by: Mary Stinson MDINTERPRETING PHYSICIAN: MARY STINSON MDThis document has been electronically signed by MARY STINSON MD on 06/29/2018 16:28:02.Order # [id number] Assessments Condition Name Status Diagnosis Date Treating Clinici an GERD (gastroesophageal reflux disease) Active Omphalitis Active Omphalitis Active Screening for cardiovascular condition Active Screening for cardiovascular condition Active History of hyperkalemia Active History of hyperkalemia Active Abdominal pain Active Abdominal pain Active PVC (premature ventricular contraction) Active PVC (premature ventricular contraction) Active Encounter to establish care Active Encounter to establish care Active Encounter to establish care Active Epicondylitis Active Epicondylitis Active Epicondylitis Active Hyperlipidemia Active Hyperlipidemia Active Hyperlipidemia Active Allergy, insect bite Active Allergy, insect bite Active Allergy, insect bite Active Encounter for health education Active Body mass index (BMI) of 25.0-25.9 in adult Active Encounter for health education Active Body mass index (BMI) of 25.0-25.9 in adult Active Encounter for health education Active Body mass index (BMI) of 25.0-25.9 in adult Active HERPES ZOSTER, UNCOMPLICATED (053.9) Active HERPES ZOSTER, UNCOMPLICATED (053.9) Active HERPES ZOSTER, UNCOMPLICATED (053.9) Active GASTRITIS, ACUTE W/O HEMORRHAGE (535.00) Active GASTRITIS, ACUTE W/O HEMORRHAGE (535.00) Active GASTRITIS, ACUTE W/O HEMORRHAGE (535.00) Active Mucoid otitis media Active Excessive body weight gain (783.1) Active Mucoid otitis media Active Excessive body weight gain (783.1) Active Mucoid otitis media Active Excessive body weight gain (783.1) Active Pain in joint involving lower leg Active Pain in joint involving lower leg Active Pain in joint involving lower leg Active Encounter for long-term (current) use of Active other high-risk medications Encounter for long-term (current) use of Active other high-risk medications Encounter for long-term (current) use of Active other high-risk medications 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 Benign neoplasm of other major salivary Active glands Encounters Start End Encounter Admission Attending Care Care Encounter ID Date/Time Date/Time Type Type Clinicians Facility Department 2020-01-18 2020-01-18 [facility] [id number] 00:00:00 00:00:00 2019-12-30 2019-12-30 [facility] [id number] 11:34:28 15:33:21 2019-12-30 2019-12-30 Outpatient [facility] [id number] 11:34:28 15:33:21 [id number] 2019-12-30 2019-12-30 Outpatient [facility] [id number] 00:00:00 00:00:00 [id number] 2019-12-01 2019-12-01 [facility] [id number] 00:00:00 00:00:00 2019-12-01 2019-12-01 [facility] [id number] 00:00:00 00:00:00 2019-11-25 2019-11-25 Outpatient [facility] [id number] 11:50:55 12:34:29 [id number] 2019-11-25 2019-11-25 [facility] [id number] 11:50:55 12:34:29 2019-11-25 2019-11-25 Out[facility] [id number] 00:00:00 00:00:00 [id number] 2019-11-24 2019-11-24 [facility] [id number] 00:00:00 00:00:00 2019-11-17 2019-11-18 X VAIBHAV LENIN, [facility] [id number] 07:19:00 10:54:00 GEORGE [id number] 2019-11-17 2019-11-18 Inpatient [facility] [id number] 07:19:00 10:54:00 2019-11-17 2019-11-17 X VAIBHAV GUTIÉRREZ, [facility] [id number] 09:35:00 09:35:00 GEORGE [id number] 2019-11-17 2019-11-17 X VA[facility] LENIN, [facility] [id number] 07:30:00 07:30:00 GEORGE [id number] 2019-11-17 2019-11-17 X VAIBHAV EVER, [facility] [id number] 00:00:00 00:00:00 LYNNETTE [id number] 2019-11-17 2019-11-17 [facility] [id number] 00:00:00 00:00:00 2019-11-16 2019-11-16 X [facility]NANYAADAN [facility] [id number] 00:00:00 00:00:00 LYNNETTE [id number] 2019-11-16 2019-11-16 [facility] [id number] 00:00:00 00:00:00 2019-11-15 2019-11-15 [facility] [id number] 13:47:35 13:47:42 2019-11-15 2019-11-15 Out[facility] [id number] 13:47:35 13:47:42 [id number] 2019-11-15 2019-11-15 [facility] [id number] 00:00:00 00:00:00 [id number] 2019-11-15 2019-11-15 [facility] [id number] 00:00:00 00:00:00 [id number] 2019-11-14 2019-11-14 [facility] [id number] 00:00:00 00:00:00 2019-11-11 2019-11-11 [facility] [id number] 00:00:00 00:00:00 2019-11-05 2019-11-05 Outpatient Silvestre WHEELER [facility] [id number] 03:33:16 03:33:16 AKIL 2019-11-02 2019-11-02 [facility] [id number] 00:00:00 00:00:00 2019-11-01 2019-11-01 Out[facility] [id number] 00:00:00 00:00:00 2019-10-14 2019-10-14 Outpatient [facility] [id number] 09:46:11 15:29:42 [id number] 2019-10-14 2019-10-14 Out[facility] [id number] 09:46:11 15:29:42 2019-10-14 2019-10-14 Outpatient [facility] [id number] 00:00:00 00:00:00 [id number] 2019-10-13 2019-10-13 Out[facility] [id number] 00:00:00 00:00:00 2019-10-12 2019-10-12 Outpatient EL LENIN, [facility] [id number] 11:48:27 23:59:00 GEORGE [id number] 2019-10-12 2019-10-12 Out[facility] [id number] 11:48:00 23:59:00 2019-09-12 2019-09-12 Out[facility] [id number] 09:00:00 23:59:00 2019-08-15 2019-08-15 Outpatient [facility] [id number] 09:56:25 23:59:00 2019-08-15 2019-08-15 Outpatient [facility] [id number] 09:30:00 09:55:00 2019-08-15 2019-08-15 Office [facility] [id number] 08:30:00 09:01:44 Visit [facility] ENT Ear Nose & Throat - Head & [place] 2019-07-13 2019-07-13 Outpatient [facility] [id number] 00:00:00 00:00:00 2019-01-05 2019-01-05 Outpatient [facility] [id number] 00:00:00 00:00:00 2018-10-13 2018-10-13 Outpatient [facility] [id number] 00:00:00 00:00:00 2018-07-22 2018-07-27 Inpatient Silvestre WILSON [facility] [id number] 05:04:00 12:06:00 KEVIN 2018-07-22 2018-07-27 Inpatient [facility] [id number] 05:04:00 12:06:00 2018-07-14 2018-07-14 Outpatient [facility] [id number] 13:52:59 23:59:00 2018-07-14 2018-07-14 Outpatient [facility] [id number] 13:45:00 13:51:00 2016-09-18 2016-09-18 [id number] 10:11:00 10:11:00 [facility] 2016-09-04 2016-09-04 [id number] 08:16:00 08:16:00 [facility] 2016-03-03 2016-03-03 Outpatient Antonia [facility] Gillespie [id number] 13:13:00 13:13:00 [facility] Family History Family Member Diagnosis Comments Start Date Stop Date Unspecified Allergies Unspecified Arthritis Unspecified Glaucoma Unspecified Heart Attack Unspecified Hypertension Unspecified Mental Illness Payers Payer Name Policy Type Policy Number Effective Date Expiration D ate [facility] [id number] 2018 00:00 :00 HEALTH PLAN [id number] [facility] [id number] 2010 00:00:00 [id number] [id number] [id number] [facility] [id number] 2019 00:00:00 [employer]BS [employer] [id number] 2010 00:00:0 0 STATE HE[employer] PLAN PPO [id number] [facility] FEDERAL PPO [id number] [facility] Blue Options OT [facility] OT Plan of Treatment Planned Activity Planned Date Details Comments Future Scheduled Test [code = ] Future Scheduled Test [code = ] Future Scheduled Test [code = ] Future Scheduled Test [code = ] Future Scheduled Test [code = ] Future Scheduled Test [code = ] Future Scheduled Test [code = ] Future Scheduled Test [code = ] Future Scheduled Test [code = ] Future Scheduled Test [code = ] Future Scheduled Test [code = ] Future Scheduled Test [code = ] Future Scheduled Test [code = ] Future Scheduled Test [code = ] Future Scheduled Test [code = ] Future Scheduled Test [code = ] Future Scheduled Test [code = ] Social History Social Habit Start Date Stop Date Comments History of tobacco use Sex Assigned At Alcohol use: Tobacco use: Tobacco smoking status NMIS 2019-11-25 00:00:00 2019-11-25 00:00 :00 Cigarettes smoked current (pack per 2019-11-25 00:00:00 00:00:00 day) - Reported Alcohol intake 2019-11-25 00:00:00 2019-11-25 00:00:00 History SDOH Alcohol Frequency 2019-10-14 00:00:00 2019-10-14 00 :00:00 History SDOH Alcohol Std Drinks 2019-10-13 00:00:00 2019-10-13 0 0:00:00 History SDOH Alcohol Binge 2019-10-13 00:00:00 2019-10-13 00:00: 00 Tobacco use and exposure 2019-09-06 00:00:00 2019-09-06 00:00:00 Smoking Status Start Date Stop Date Ex-smoker (finding) Vital Signs Vital Name Observation Time Observation Value Comments Body temperature 2019-08-15 08:23:44 97.4 [degF] Weight 2019-08-15 08:23:44 150.2 [lb_av] Body height 2019-08-15 08:23:44 64 [in_us] Body mass index (BMI) [Ratio] 2019-08-15 08:23:44 25.78 kg/m2 Systolic blood pressure 2019-12-30 11:55:00 108 mm[Hg] Diastolic blood pressure 2019-12-30 11:55:00 66 mm[Hg] Heart rate 2019-12-30 11:55:00 68 /min Body temperature 2019-12-30 11:55:00 36.44 Natalia Body height 2019-12-30 11:55:00 162.6 cm Body weight 2019-12-30 11:55:00 66.679 kg Oxygen saturation in Arterial blood by 2019-12-30 11:55:00 98 % Pulse oximetry Systolic blood pressure 2019-11-25 12:05:00 118 mm[Hg] Diastolic blood pressure 2019-11-25 12:05:00 65 mm[Hg] Heart rate 2019-11-25 12:05:00 64 /min Body temperature 2019-11-25 12:05:00 36.89 Natalia Body height 2019-11-25 12:05:00 162.6 cm Body weight 2019-11-25 12:05:00 66.679 kg Oxygen saturation in Arterial blood by 2019-11-25 12:05:00 97 % Pulse oximetry Systolic blood pressure 2019-11-18 07:47:00 127 mm[Hg] Diastolic blood pressure 2019-11-18 07:47:00 77 mm[Hg] Heart rate 2019-11-18 07:47:00 64 /min Body temperature 2019-11-18 07:47:00 36.61 Natalia Respiratory rate 2019-11-18 07:47:00 18 /min Oxygen saturation in Arterial blood by 2019-11-18 07:47:00 98 % Pulse oximetry Body height 2019-11-17 14:33:00 162.6 cm Body weight 2019-11-17 14:33:00 66.679 kg Systolic blood pressure 2019-10-14 10:00:00 138 mm[Hg] Diastolic blood pressure 2019-10-14 10:00:00 66 mm[Hg] Heart rate 2019-10-14 10:00:00 75 /min Body temperature 2019-10-14 10:00:00 36.5 Natalia Respiratory rate 2019-10-14 10:00:00 18 /min Body height 2019-10-14 10:00:00 162.6 cm Body weight 2019-10-14 10:00:00 66.679 kg Oxygen saturation in Arterial blood by 2019-10-14 10:00:00 99 % Pulse oximetry Systolic blood pressure 2018-07-27 11:17:00 135 mm[Hg] Diastolic blood pressure 2018-07-27 11:17:00 79 mm[Hg] Heart rate 2018-07-27 11:17:00 53 /min Body temperature 2018-07-27 11:17:00 36.28 Natalia Respiratory rate 2018-07-27 11:17:00 16 /min Oxygen saturation in Arterial blood by 2018-07-27 08:00:00 98 % Pulse oximetry Body height 2018-07-26 07:27:00 162.6 cm Body weight 2018-07-26 07:27:00 68.6 kg BMI 2018-07-26 07:27:00 25.95 kg/m2 Body height 2018-07-14 14:17:00 162.6 cm Body weight Measured 2018-07-14 14:17:00 63.05 kg BMI 2018-07-14 14:17:00 23.86 kg/m2 Hospital Discharge Instructions 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
--- NOTE | 2020-07-12 10:12 | WOMENS IMAGING REPORT ---
EXAM DESCRIPTION: BILAT SCREENING MAMMO W/CAD IMAGES COMPLETED DATE/TIME: 07/12/2020 8:48 am REASON FOR STUDY: Z12.31 ENCOUNTER FOR SCREENING MAMMOGRAM FOR MALIGNANT NEOPLASM OF BREAST Z12.31 ENCNTR SCREEN MAMMOGRAM FOR MALIGNANT NEOPLASM OF FRANCIS COMPARISON: 11/12/2018, 11/09/2017, 08/15/2015, 07/25/2014 EXAM PARAMETERS: Standard craniocaudal and mediolateral oblique views of each breast recorded using digital acquisition. Read with the assistance of CAD. .[facility] - [employer] Manager Version 9.2 LIMITATIONS: None. FINDINGS: No suspicious masses, suspicious calcifications or architectural distortion. No areas of c oncern. IMPRESSION: NEGATIVE MAMMOGRAM. BIRADS 1 BREAST DENSITY: c. The breasts are heterogeneously dense, which may obscure small masses. BIRAD: ASSESSMENT: 1 NEGATIVE RECOMMENDATION: ROUTINE SCREENING COMMENT: The patient has been notified of the results by letter per MQSA requirements. Additional no tification policies are in place for contacting patient with suspicious or incomplete findings. Quality ID #[id number]: The [employer] recommends an annual screening mammogram for women aged 40 years or over. This facility utilizes a reminder system to ensure that all patients receive reminder letters, and/or direct phone calls for appointments. This includes reminders for routine scr eening mammograms, diagnostic mammograms, or other Breast Imaging Interventions when appropriate. Th is patient will be placed in the appropriate reminder system. TECHNICAL DOCUMENTATION: FINDING NUMBER: (1) ASSESSMENT: (1) JOB ID: [id number] 2010 [employer]- All Rights Reserved Reading location - IP/workstation name: [email or web address]
== END ==
LOC: WI 08:24
PROVIDERS: ATTEND Nurse Practitioner Acute Care
DX: Z12.31 Encounter for screening mammogram for malignant neoplasm of breast (principal)
CPT/HCPCS: 77067